=== PATIENT | male | born 1995 | race Caucasian/White ===

== ENCOUNTER 2016-03-27 05:08 | Emergency (ER) | payer OTHER ==
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
[2016-03-27 06:12] LABS: BASOPHIL 0.2 % (0-2.0); EOSINOPHIL 0.1 % (0-4.5); MCH 31.1 pg (25.7-33.7); MCHC 33.7 g/dl (32.0-35.9); MEAN CELL VOLUME 92.4 fl (80-96); MEAN PLT VOLUME 8.9 fl (7.5-11.1); PLATELET COUNT 277 K/MM3 (134-434); RDW 12.8 % (11.9-15.9); WHITE BLOOD COUNT 11.6 K/mm3 (4.0-10.0)
[2016-03-27 06:13] LABS: URINE APPEARANCE CLEAR; URINE BILIRUBIN NEGATIVE (NEGATIVE); URINE BLOOD NEGATIVE (NEGATIVE); URINE COLOR LTYELLOW; URINE GLUCOSE (UA) NEGATIVE (NEGATIVE); URINE KETONE NEGATIVE (NEGATIVE); URINE LEUK ESTERASE NEGATIVE (NEGATIVE); URINE NITRITE NEGATIVE (NEGATIVE); URINE PROTEIN NEGATIVE (NEGATIVE); URINE UROBILINOGEN NEGATIVE E.U./dl (0.2-1.0)
[2016-03-27 06:42] LABS: ALBUMIN 5.3 g/dl (3.4-5.0); ALK PHOS 115 U/L (45-117); ANION GAP 12 (8-16); BILIRUBIN,TOTAL 0.6 mg/dL (0.2-1.0); CALCIUM 10.6 mg/dL (8.5-10.1); CO2 26 mmol/L (21-32); GLUCOSE,RANDOM 114 mg/dL (74-106); SGOT/AST 21 U/L (15-37); SGPT/ALT 26 U/L (12-78); TOT PROT 9.3 g/dl (6.4-8.2)
[2016-03-27 06:45] VITALS: BP 146/88; PULSE 73; TEMP 98.3; BMI 23.8
[2016-03-27 15:03] LABS: URINE MARIJUANA THC POSITIVE ng/ml (CUTOFF=50)
== END 2016-03-27 06:59 | disposition home or self-care (01) ==
LOC: JER 05:08
DX: R42 Dizziness and giddiness (principal); T50.905A Adverse effect of unspecified drugs, medicaments and biological substances, initial encounter; Y92.018 Other place in single-family (private) house as the place of occurrence of the external cause; F90.9 Attention-deficit hyperactivity disorder, unspecified type; F17.210 Nicotine dependence, cigarettes, uncomplicated
CPT/HCPCS: 36415; 80053; 80307; 81003; 83930; 85025; 99283-25

== ENCOUNTER 2016-08-11 23:26 | Emergency (ER) | payer SELFPAY ==
[2016-08-11 23:36] VITALS: BP 133/90; PULSE 90; TEMP 98; BMI 25.0
--- NOTE | 2016-08-11 23:49 | PDOC ---
History of Present Illness - General Chief Complaint: Headache Stated Complaint: HEADACHE Time Seen by Provider: 08/11/16 23:35 History Source: Patient Exam Limitations: No Limitations - History of Present Illness Initial Comments: 08/11/16 23:47 This is a 20-year-old male who comes in complaining of headache 1 week. Patient said he has taken Tylenol and Advil without relief. Patient said headache is been constant but kind of gets worse from time to time. Patient describes the headache as throbbing and bitemporal. Patient denies any nausea, photophobia, neurological complaints. Patient denies any neck pain or stiffness. Patient denies any fevers or chills. Patient said he has been able to go to work with the headache but is worse tonight so he came in for evaluation. Patient went to an urgent care center and they told him he needed to come to the ER for a CAT scan. PAST MEDICAL HISTORY: no significant history PAST SURGICAL HISTORY: no significant history FAMILY HISTORY: no pertinant history SOCIAL HISTORY: Pt lives with family and is employed. MEDICATIONS: reviewed ALLERGIES: As per nursing notes Review of Systems General: No fevers or chills, no weakness, no weight loss HEENT: No change in vision. No sore throat,. No ear pain CardioVascular: No chest pain or shortness of breath Respiratory:No cough, or wheezing. Gastrointestinal: no nausea, vomitting, diarrhea or constipation, No rectal bleeding Genitourinary: No dysuria, hematuria, or frequency Musculoskeletal: No joint or muscle pain or swelling Neurologic: + headache, no vertigo, dizziness or loss of consciousness Psychiatric: nor depression Skin: No rashes or easy bruising Endocrine: no increased thirst or abnormal weight change Allergic: no skin or latex allergy All other systems reviewed and normal Exam: General: Well-nourished well-developed individual, no acute distress HEENT: Throat: Normal, tonsils normal, no erythema or exudate Neck: Supple, no meningeal signs, no lymphadenopathy Eyes::Pupils equal reactive and round, extraocular motion intact Extremities: Warm, dry, no cyanosis, clubbing, or edema Skin: No rashes Neuro: Alert and oriented x3, nonfocal exam, grossly intact, normal gait Psych: Normal mood and affect 08/12/16 00:[address] Referring Physician: Rodolfo Douglas Patient Name: Edwardo Elkins This is a preliminary report by imaging supervisor computer operations Exam: Noncontrast CT head Images: 69 Clinical indication: Temporal headache. Findings: Multiple axial images were obtained of the brain without contrast. There is no mass-effect, midline shift or hemorrhage. There is no intra-axial or extra-axial fluid collection. The visualized portions of the paranasal sinuses are clear. The middle ear cavities and mastoids are clear. No calvarial fracture seen. Impression: No mass effect or intracranial hemorrhage. No acute abnormality identified. THIS DOCUMENT HAS BEEN ELECTRONICALLY SIGNED Torin Galarza M.D. 08/12/2016 00:47 MYLES Masters Please call Imaging Building Materials Sales Attendant [phone]) with questions. Assessment and plan: This is a 20-year-old male who comes in complaining of bitemporal headache. Patient said he's had headach constant 1 week but no other associated symptoms. Patient said headache was worse tonight so he came in for evaluation. Patient had a head CT that was negative Patient given Toradol with improvement of the symptoms and discharged home will follow-up with his primary care doctor 08/12/16 00:55 Past History - Past Medical History Allergies/Adverse Reactions: Allergies Allergy/AdvReac Type Severity Reaction Status Date / Time fructose Allergy Severe Swelling Verified 03/27/16 05:24 wheat Allergy Severe Vomiting Verified 03/27/16 05:24 flour Allergy Severe Vomiting Uncoded 03/27/16 05:24 Home Medications: Ambulatory Orders Buspirone HCl [Buspar -] 15 mg PO BID 08/11/16 Quetiapine Fumarate [Seroquel -] 200 mg PO HS 08/11/16 Anemia: No Asthma: No Cancer: No Cardiac Disorders: No CVA: No COPD: No CHF: No Dementia: No Diabetes: No GI Disorders: Yes (CELIAC DISEASE) Disorders: No HTN: No Hypercholesterolemia: No Kidney Stones: No Liver Disease: No Psychiatric Problems: Yes (ADHD/ANXIETY/INSOMNIA) Suicide Attempt (Hx): No Seizures: Yes (R/T BENZO WITHDRAWAL) Thyroid Disease: No - Surgical History Abdominal Surgery: No Appendectomy: No Cardiac Surgery: No Cholecystectomy: No Lung Surgery: No Neurologic Surgery: No Orthopedic Surgery: No - Reproductive History Testicular Surgery: No - Immunization History Immunization Up to Date: Yes - Psycho/Social/Smoking Cessation Hx Anxiety: No Suicidal Ideation: No Smoking Status: No Smoking History: Current every day smoker Have you smoked in the past 12 months: Yes Number of Cigarettes Smoked Daily: 20 Cigars Per Day: 0 Information on smoking cessation initiated: Yes 'Breaking Loose' booklet given: 08/11/16 Hx Alcohol Use: Yes (vodka) Drug/Substance Use Hx: Yes Substance Use Type: Alcohol, Marijuana, Tranquilizers Hx Substance Use Treatment: Yes *Physical Exam - Vital Signs Last Vital Signs Temp Pulse Resp BP Pulse Ox 98 F 90 16 133/90 97 08/11/16 23:34 08/11/16 23:34 08/11/16 23:34 08/11/16 23:34 08/11/16 23:34 *DC/Admit/Observation/Transfer Diagnosis at time of Disposition: Headache Qualifiers: Headache type: tension-type Headache chronicity pattern: unspecified pattern Intractability: not intractable Qualified Code(s): G44.209 - Tension-type headache, unspecified, not intractable - Discharge Dispostion Condition at time of disposition: Stable Admit: No - Referrals Referrals: Donna Nagy MD [Primary Care Provider] - - Patient Instructions Additional Instructions: For the pain you can take Tylenol or ibuprofen or Aleve. Return to the emergency department immediately with ANY new, persistent or worsening symptoms. Continue any medications as previously prescribed by your physician. You should follow up with your primary doctor as soon as possible regarding today's emergency department visit. . Please make sure your doctor reviews the results of your emergency evaluation. Thank you for coming to the Emergency Department today for your care. It was a pleasure to see you today. Please note that your evaluation is INCOMPLETE until you follow-up with your doctor.
[2016-08-12] MEDS ORDERED: KETOROLAC TROMETHAMINE 60 MG/2 ML VIAL IM ONE (00:49)
[2016-08-12] MEDS ORDERED: KETOROLAC TROMETHAMINE 60 MG/2 ML VIAL ONE (00:54)
== END 2016-08-12 01:00 | disposition home or self-care (01) ==
LOC: FER 23:26
PROC: 3E0233Z Introduction of Anti-inflammatory into Muscle, Percutaneous Approach (ICD-10-PCS; principal; 2016-08-11)
DX: G44.209 Tension-type headache, unspecified, not intractable (principal); K90.0 Celiac disease; F90.9 Attention-deficit hyperactivity disorder, unspecified type; F41.9 Anxiety disorder, unspecified; F17.210 Nicotine dependence, cigarettes, uncomplicated
CPT/HCPCS: 70450-TC; 99281-25

== ENCOUNTER 2017-01-03 16:10 | Inpatient (IN) | payer OTHER ==
[2017-01-03 21:36] VITALS: BMI 29.6
--- NOTE | 2017-01-03 22:09 | HP ---
[facility] Rehab Assess/Revision - Admission History Admitted to Rehab from: [facility] [place] Date of Admission to Rehab: - Vital signs Vital Signs: Vital Signs Period Temp Pulse Resp BP Sys/Zheng Pulse Ox Last 24 Hr 97.8 F 90 18 123/71 - Findings Detox History & Physical reviewed: Yes Concur with findings: Yes Comments/Additional Findings: completed detox 01/02/17 return 01/03/17 for inpatient rehab Inpatient Rehab Admission - Initial Determination Are CD services needed?: Yes Free of communicable disease: Yes Not in need of hospitalization: Yes - Rehab Admission Criteria Previous failed treatment: Yes Poor recovery environment: Yes Comorbidities: Yes Lacks judgement: No Patient is meeting Inpatient Rehab admission criteria:: Yes
[2017-01-03] MEDS ORDERED: MENTHOL/PHENOL 1 EACH UD MM PRN (22:12)
[2017-01-03] MEDS ORDERED: MAGNESIUM HYDROX 2400MG/30ML ORAL SUSPENSION 30 ML CUP PO PRN (22:12)
[2017-01-03] MEDS ORDERED: ACETAMINOPHEN 325 MG TABLET (FP) PO PRN (22:12)
[2017-01-03] MEDS ORDERED: IBUPROFEN 400 MG TABLET (FP) PO PRN (22:12)
[2017-01-03] MEDS ORDERED: P-EPHED 60MG/TRIPROLIDI 2.5MG TABLET PO PRN (22:12)
[2017-01-03] MEDS ORDERED: guaiFENesin/D-METHORPHAN HB 10 ML UNIT-DOSE CUPS PO PRN (22:12)
[2017-01-03] MEDS ORDERED: MAGNESIUM CITRATE 300 ML BOTTLE PO PRN (22:12)
[2017-01-03] MEDS ORDERED: LOPERAMIDE HCL 2 MG CAPSULE PO PRN (22:12)
[2017-01-04] MEDS ORDERED: METHADONE HCL 40 MG DISPERSABLE TABLET PO SCH (07:30)
[2017-01-04] MEDS ORDERED: METHADONE HCL 10 MG TABLET ONE (08:26)
[2017-01-04] MEDS ORDERED: METHADONE HCL 40 MG DISPERSABLE TABLET ONE (08:27)
[2017-01-04] MEDS: PRENATAL VITAMINS W/ FOLIC ACID TABLET (FP) PO SCH (09:34)
[2017-01-04] MEDS: METHADONE 80 MG, METHADONE 10 MG PO SCH (09:34)
[2017-01-04] MEDS: NICOTINE 21 MG/24 HOURS TOPICAL PATCH TD SCH (09:35)
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
[2017-01-04] MEDS: QUEtiapine FUMARATE 50 MG TABLET PO SCH ×2 (15:19→21:20)
[2017-01-04] MEDS: SUVOREXANT 10 MG TABLET PO SCH (21:20)
[2017-01-04] MEDS: THIAMINE HCL 100 MG TABLET (FP) PO SCH (21:20)
[2017-01-04] MEDS: GABAPENTIN 100 MG CAPSULE (FP) PO SCH (21:20)
[2017-01-05] MEDS ORDERED: METHADONE HCL 10 MG TABLET ONE (03:20)
[2017-01-05] MEDS ORDERED: METHADONE HCL 40 MG DISPERSABLE TABLET ONE (03:21)
[2017-01-05] MEDS: GABAPENTIN 100 MG CAPSULE (FP) PO SCH ×3 (06:04→21:26)
[2017-01-05] MEDS: METHADONE 80 MG, METHADONE 10 MG PO SCH (06:04)
[2017-01-05] MEDS: NICOTINE 21 MG/24 HOURS TOPICAL PATCH TD SCH (10:00)
[2017-01-05] MEDS: QUEtiapine FUMARATE 50 MG TABLET PO SCH ×2 (10:01→21:25)
[2017-01-05] MEDS: PRENATAL VITAMINS W/ FOLIC ACID TABLET (FP) PO SCH (10:01)
[2017-01-05] MEDS: hydrOXYzine PAMOATE 50 MG CAPSULE (FP) PO PRN (10:02)
[2017-01-05] MEDS: MAG HYDROX/AL HYDROX/SIMETH 30 ML UNIT-DOSE CUP PO PRN (11:26)
[2017-01-05] MEDS: SUVOREXANT 10 MG TABLET PO SCH (21:25)
[2017-01-05] MEDS: THIAMINE HCL 100 MG TABLET (FP) PO SCH (21:26)
[2017-01-06] MEDS ORDERED: METHADONE HCL 10 MG TABLET ONE (03:10)
[2017-01-06] MEDS ORDERED: METHADONE HCL 40 MG DISPERSABLE TABLET ONE (03:11)
[2017-01-06] MEDS: MAG HYDROX/AL HYDROX/SIMETH 30 ML UNIT-DOSE CUP PO PRN ×2 (03:40→19:53)
[2017-01-06] MEDS: METHADONE 80 MG, METHADONE 10 MG PO SCH (06:36)
[2017-01-06] MEDS: GABAPENTIN 100 MG CAPSULE (FP) PO SCH ×3 (06:36→21:14)
[2017-01-06] MEDS: QUEtiapine FUMARATE 50 MG TABLET PO SCH ×2 (09:45→21:14)
[2017-01-06] MEDS: NICOTINE 21 MG/24 HOURS TOPICAL PATCH TD SCH (09:45)
[2017-01-06] MEDS: PRENATAL VITAMINS W/ FOLIC ACID TABLET (FP) PO SCH (09:45)
[2017-01-06] MEDS: THIAMINE HCL 100 MG TABLET (FP) PO SCH (21:14)
[2017-01-06] MEDS: SUVOREXANT 10 MG TABLET PO SCH (21:14)
[2017-01-07] MEDS ORDERED: METHADONE HCL 40 MG DISPERSABLE TABLET ONE (03:06)
[2017-01-07] MEDS ORDERED: METHADONE HCL 10 MG TABLET ONE (03:06)
[2017-01-07] MEDS: GABAPENTIN 100 MG CAPSULE (FP) PO SCH ×3 (06:41→21:18)
[2017-01-07] MEDS: METHADONE 80 MG, METHADONE 10 MG PO SCH (06:41)
[2017-01-07] MEDS: NICOTINE 21 MG/24 HOURS TOPICAL PATCH TD SCH (09:50)
[2017-01-07] MEDS: QUEtiapine FUMARATE 50 MG TABLET PO SCH ×2 (09:50→21:18)
[2017-01-07] MEDS: PRENATAL VITAMINS W/ FOLIC ACID TABLET (FP) PO SCH (09:50)
[2017-01-07] MEDS: NICOTINE POLACRILEX 4 MG GUM BUC PRN (09:51)
[2017-01-07] MEDS: MAG HYDROX/AL HYDROX/SIMETH 30 ML UNIT-DOSE CUP PO PRN (14:13)
[2017-01-07] MEDS: THIAMINE HCL 100 MG TABLET (FP) PO SCH (21:18)
[2017-01-07] MEDS: SUVOREXANT 10 MG TABLET PO SCH (21:18)
[2017-01-08] MEDS ORDERED: METHADONE HCL 40 MG DISPERSABLE TABLET ONE (03:02)
[2017-01-08] MEDS ORDERED: METHADONE HCL 10 MG TABLET ONE (03:02)
[2017-01-08] MEDS: METHADONE 80 MG, METHADONE 10 MG PO SCH (06:31)
[2017-01-08] MEDS: GABAPENTIN 100 MG CAPSULE (FP) PO SCH ×3 (06:31→21:21)
[2017-01-08] MEDS: NICOTINE 21 MG/24 HOURS TOPICAL PATCH TD SCH (09:34)
[2017-01-08] MEDS: QUEtiapine FUMARATE 50 MG TABLET PO SCH ×2 (09:35→21:21)
[2017-01-08] MEDS: PRENATAL VITAMINS W/ FOLIC ACID TABLET (FP) PO SCH (09:35)
[2017-01-08] MEDS: PANTOPRAZOLE 40 MG TABLET (FP) PO SCH (12:04)
[2017-01-08] MEDS: THIAMINE HCL 100 MG TABLET (FP) PO SCH (21:21)
[2017-01-08] MEDS: SUVOREXANT 10 MG TABLET PO SCH (21:22)
[2017-01-09] MEDS ORDERED: METHADONE HCL 10 MG TABLET ONE (03:09)
[2017-01-09] MEDS ORDERED: METHADONE HCL 40 MG DISPERSABLE TABLET ONE (03:09)
[2017-01-09] MEDS: GABAPENTIN 100 MG CAPSULE (FP) PO SCH ×3 (06:18→21:03)
[2017-01-09] MEDS: METHADONE 80 MG, METHADONE 10 MG PO SCH (06:18)
[2017-01-09] MEDS: QUEtiapine FUMARATE 50 MG TABLET PO SCH ×2 (09:39→21:03)
[2017-01-09] MEDS: PANTOPRAZOLE 40 MG TABLET (FP) PO SCH (09:39)
[2017-01-09] MEDS: PRENATAL VITAMINS W/ FOLIC ACID TABLET (FP) PO SCH (09:39)
[2017-01-09] MEDS: NICOTINE 21 MG/24 HOURS TOPICAL PATCH TD SCH (09:39)
--- NOTE | 2017-01-09 14:55 | DS ---
[facility] Detox Discharge Summary Admission Date: 01/03/17 - Physical Exam Results Vital Signs: Vital Signs Temperature 98.1 F 01/09/17 06:37 Pulse Rate 86 01/09/17 06:37 Respiratory Rate 18 01/09/17 06:37 Blood Pressure 113/62 01/09/17 06:37 O2 Sat by Pulse Oximetry (%) - Medication Discharge Medications: Ambulatory Orders Quetiapine Fumarate [Seroquel -] 200 mg PO HS 08/11/16 Methadone [Dolophine -] 90 mg PO DAILY@0600 tablet MDD 90 01/09/17
[2017-01-09] MEDS: SUVOREXANT 10 MG TABLET PO SCH (21:03)
[2017-01-09] MEDS: THIAMINE HCL 100 MG TABLET (FP) PO SCH (21:03)
[2017-01-09] MEDS: NICOTINE POLACRILEX 4 MG GUM BUC PRN (21:04)
[2017-01-10] MEDS ORDERED: METHADONE HCL 10 MG TABLET ONE (03:05)
[2017-01-10] MEDS ORDERED: METHADONE HCL 40 MG DISPERSABLE TABLET ONE (03:06)
[2017-01-10] MEDS: GABAPENTIN 100 MG CAPSULE (FP) PO SCH ×3 (06:21→21:07)
[2017-01-10] MEDS: METHADONE 80 MG, METHADONE 10 MG PO SCH (06:21)
[2017-01-10] MEDS: PRENATAL VITAMINS W/ FOLIC ACID TABLET (FP) PO SCH (09:45)
[2017-01-10] MEDS: PANTOPRAZOLE 40 MG TABLET (FP) PO SCH (09:45)
[2017-01-10] MEDS: QUEtiapine FUMARATE 50 MG TABLET PO SCH (09:45)
[2017-01-10] MEDS: NICOTINE 21 MG/24 HOURS TOPICAL PATCH TD SCH (09:46)
--- NOTE | 2017-01-10 12:07 | PN ---
Psychiatric Progress Note Vital Signs: Vital Signs Period Temp Pulse Resp BP Sys/Zheng Pulse Ox Last 24 Hr 97.5 F 77 16-18 121/88 Date of Session: 01/10/17 Chief Complaint:: progress update HPI: Patient is addressing opioid , benzo, nicotine dependence comorbid PTSD and substance induced mood disorder. Current Medications: Active Medications Generic Name Dose Route Start Last Admin Trade Name Freq PRN Reason Stop Dose Admin Acetaminophen 650 mg 01/03/17 22:12 Tylenol - PO Q4H PRN FEVER OR PAIN Al Hydroxide/Mg Hydroxide 30 ml 01/03/17 22:12 01/07/17 14:13 Mylanta Oral Suspension - PO 30 ml Q6H PRN Administration DYSPEPSIA Eucalyptus/Menthol/Phenol/Sorbitol 1 each 01/03/17 22:12 Cepastat Lozenge - MM Q4H PRN SORE THROAT Gabapentin 100 mg 01/04/17 22:00 01/10/17 06:21 Neurontin - PO 100 mg TID KALEE Administration Guaifenesin 10 ml 01/03/17 22:12 Robitussin Dm - PO Q6H PRN COUGH Hydroxyzine Pamoate 50 mg 01/05/17 02:04 01/05/17 10:02 Vistaril - PO 50 mg Q6H PRN Administration FOR ITCHING Ibuprofen 400 mg 01/03/17 22:12 Motrin - PO Q6H PRN PAIN Loperamide HCl 4 mg 01/03/17 22:12 Imodium - PO Q6H PRN DIARRHEA Magnesium Citrate 300 ml 01/03/17 22:12 Citroma - PO Q48H PRN CONSTIPATION Magnesium Hydroxide 30 ml 01/03/17 22:12 Milk Of Magnesia - PO DAILY PRN CONSTIPATION Methadone HCl 80 mg/ Methadone 90 mg 01/04/17 07:30 01/10/17 06:21 HCl 10 mg PO 90 mg DAILY@0600 KALEE Administration Nicotine 21 mg 01/04/17 10:00 01/10/17 09:46 Nicoderm Patch - TD 21 mg DAILY KALEE Administration Nicotine Polacrilex 4 mg 01/03/17 22:12 01/09/17 21:04 Nicorette Gum - BUC 4 mg Q2H PRN Administration NICOTINE REPLACEMENT RX Pantoprazole Sodium 40 mg 01/08/17 11:00 01/10/17 09:45 Protonix - PO 40 mg DAILY KALEE Administration Multivit/Folic Acid/Iron 1 tab 01/04/17 10:00 01/10/17 09:45 Vitamins (Sjr) - PO 1 tab DAILY KALEE Administration Pseudoephedrine/Triprolidine 1 combo 01/03/17 22:12 Actifed - PO TID PRN NASAL CONGESTION Quetiapine Fumarate 100 mg 01/11/17 10:00 Seroquel - PO DAILY KALEE Quetiapine Fumarate 200 mg 01/10/17 22:00 Seroquel - PO HS KALEE Thiamine HCl 100 mg 01/04/17 22:00 01/09/17 21:03 Vitamin B1 - PO 100 mg HS KALEE Administration Medication(s) Change(s): increase Seroquel 100 mg po am and 200 mg po hs Current Side Effect: No Lab tests ordered: No Lab tests reviewed: Yes Provider note:: Patient adjusted well to the unit, he was seen today, reports having mood swings, difficulty fall and maintain sleep, states was on Seroquel 200 mg po bid, reviewed current medications with the patient , medication well tolerated, discussed indications and properties each, will increase Seroquel 100 mg am and 200 mg hs, continue to monitor progress as needed. Total face to face time:: 25 Mental Status Exam - Mental Status Exam Alert and Oriented to: Time, Place, Person Cognitive Function: Good Patient Appearance: Well Groomed Mood: Sad, Irritable Affect: Appropriate, Mood Congruent Patient Behavior: Appropriate, Cooperative Speech Pattern: Clear, Appropriate Voice Loudness: Normal Thought Process: Intact, Goal Oriented Thought Disorder: Not Present Hallucinations: Denies Suicidal Ideation: Denies Homicidal Ideation: Denies Insight/Judgement: Fair Sleep: Poorly, Difficulty falling asleep Appetite: Fair Muscle strength/Tone: Normal Gait/Station: Normal Psychiatric Treatment Plan - Problem List (1) Post traumatic stress disorder (PTSD) Current Visit: Yes (2) Benzodiazepine dependence Current Visit: Yes (3) Nicotine dependence Current Visit: No Qualifiers: Nicotine product type: cigarettes Substance use status: uncomplicated Qualified Code(s): F17.210 - Nicotine dependence, cigarettes, uncomplicated (4) Opioid dependence on agonist therapy Current Visit: No (5) Substance induced mood disorder Current Visit: No (6) Methadone maintenance therapy patient Current Visit: No Comment: pending verication
[2017-01-10] MEDS: SUVOREXANT 10 MG TABLET PO SCH (21:07)
[2017-01-10] MEDS: QUEtiapine FUMARATE 200 MG TABLET PO SCH (21:07)
[2017-01-10] MEDS: THIAMINE HCL 100 MG TABLET (FP) PO SCH (21:07)
[2017-01-11] MEDS ORDERED: METHADONE HCL 10 MG TABLET ONE (03:08)
[2017-01-11] MEDS ORDERED: METHADONE HCL 40 MG DISPERSABLE TABLET ONE (03:08)
[2017-01-11] MEDS: GABAPENTIN 100 MG CAPSULE (FP) PO SCH ×3 (06:35→21:12)
[2017-01-11] MEDS: METHADONE 80 MG, METHADONE 10 MG PO SCH (06:36)
[2017-01-11] MEDS: PANTOPRAZOLE 40 MG TABLET (FP) PO SCH (09:54)
[2017-01-11] MEDS: QUEtiapine FUMARATE 100 MG TABLET (FP) PO SCH (09:54)
[2017-01-11] MEDS: PRENATAL VITAMINS W/ FOLIC ACID TABLET (FP) PO SCH (09:54)
[2017-01-11] MEDS: NICOTINE 21 MG/24 HOURS TOPICAL PATCH TD SCH (09:55)
[2017-01-11] MEDS: hydrOXYzine PAMOATE 50 MG CAPSULE (FP) PO PRN (09:55)
[2017-01-11] MEDS: THIAMINE HCL 100 MG TABLET (FP) PO SCH (21:12)
[2017-01-11] MEDS: QUEtiapine FUMARATE 200 MG TABLET PO SCH (21:12)
[2017-01-12] MEDS ORDERED: METHADONE HCL 10 MG TABLET ONE (03:07)
[2017-01-12] MEDS ORDERED: METHADONE HCL 40 MG DISPERSABLE TABLET ONE (03:08)
[2017-01-12] MEDS: METHADONE 80 MG, METHADONE 10 MG PO SCH (06:26)
[2017-01-12] MEDS: GABAPENTIN 100 MG CAPSULE (FP) PO SCH ×3 (06:26→21:01)
[2017-01-12] MEDS: PRENATAL VITAMINS W/ FOLIC ACID TABLET (FP) PO SCH (09:41)
[2017-01-12] MEDS: QUEtiapine FUMARATE 100 MG TABLET (FP) PO SCH (09:41)
[2017-01-12] MEDS: PANTOPRAZOLE 40 MG TABLET (FP) PO SCH (09:41)
[2017-01-12] MEDS: NICOTINE 21 MG/24 HOURS TOPICAL PATCH TD SCH (09:42)
[2017-01-12] MEDS: NICOTINE POLACRILEX 4 MG GUM BUC PRN ×2 (09:43→14:13)
[2017-01-12] MEDS: QUEtiapine FUMARATE 200 MG TABLET PO SCH (21:02)
[2017-01-12] MEDS: THIAMINE HCL 100 MG TABLET (FP) PO SCH (21:02)
[2017-01-13] MEDS ORDERED: METHADONE HCL 10 MG TABLET ONE (03:37)
[2017-01-13] MEDS ORDERED: METHADONE HCL 40 MG DISPERSABLE TABLET ONE (03:38)
[2017-01-13] MEDS: METHADONE 80 MG, METHADONE 10 MG PO SCH (06:28)
[2017-01-13] MEDS: GABAPENTIN 100 MG CAPSULE (FP) PO SCH ×3 (06:28→21:01)
[2017-01-13] MEDS: PRENATAL VITAMINS W/ FOLIC ACID TABLET (FP) PO SCH (09:45)
[2017-01-13] MEDS: QUEtiapine FUMARATE 100 MG TABLET (FP) PO SCH (09:45)
[2017-01-13] MEDS: NICOTINE 21 MG/24 HOURS TOPICAL PATCH TD SCH (09:45)
[2017-01-13] MEDS: PANTOPRAZOLE 40 MG TABLET (FP) PO SCH (09:45)
[2017-01-13] MEDS: NICOTINE POLACRILEX 4 MG GUM BUC PRN ×2 (14:13→21:09)
[2017-01-13] MEDS: QUEtiapine FUMARATE 200 MG TABLET PO SCH (21:01)
[2017-01-13] MEDS: THIAMINE HCL 100 MG TABLET (FP) PO SCH (21:01)
[2017-01-14] MEDS ORDERED: METHADONE HCL 10 MG TABLET ONE (03:35)
[2017-01-14] MEDS ORDERED: METHADONE HCL 40 MG DISPERSABLE TABLET ONE (03:35)
[2017-01-14] MEDS: METHADONE 80 MG, METHADONE 10 MG PO SCH (06:23)
[2017-01-14] MEDS: GABAPENTIN 100 MG CAPSULE (FP) PO SCH ×3 (06:24→21:02)
[2017-01-14] MEDS: NICOTINE 21 MG/24 HOURS TOPICAL PATCH TD SCH (09:44)
[2017-01-14] MEDS: QUEtiapine FUMARATE 100 MG TABLET (FP) PO SCH (09:44)
[2017-01-14] MEDS: PANTOPRAZOLE 40 MG TABLET (FP) PO SCH (09:44)
[2017-01-14] MEDS: PRENATAL VITAMINS W/ FOLIC ACID TABLET (FP) PO SCH (09:44)
[2017-01-14] MEDS: NICOTINE POLACRILEX 4 MG GUM BUC PRN ×2 (09:46→21:03)
[2017-01-14] MEDS: QUEtiapine FUMARATE 200 MG TABLET PO SCH (21:02)
[2017-01-14] MEDS: THIAMINE HCL 100 MG TABLET (FP) PO SCH (21:02)
[2017-01-15] MEDS ORDERED: METHADONE HCL 10 MG TABLET ONE (03:16)
[2017-01-15] MEDS ORDERED: METHADONE HCL 40 MG DISPERSABLE TABLET ONE (03:17)
[2017-01-15] MEDS: GABAPENTIN 100 MG CAPSULE (FP) PO SCH ×3 (06:37→21:16)
[2017-01-15] MEDS: METHADONE 80 MG, METHADONE 10 MG PO SCH (06:37)
[2017-01-15] MEDS: QUEtiapine FUMARATE 100 MG TABLET (FP) PO SCH (10:10)
[2017-01-15] MEDS: PANTOPRAZOLE 40 MG TABLET (FP) PO SCH (10:10)
[2017-01-15] MEDS: PRENATAL VITAMINS W/ FOLIC ACID TABLET (FP) PO SCH (10:10)
[2017-01-15] MEDS: NICOTINE 21 MG/24 HOURS TOPICAL PATCH TD SCH (10:10)
[2017-01-15] MEDS: NICOTINE POLACRILEX 4 MG GUM BUC PRN ×3 (10:12→21:16)
[2017-01-15] MEDS: QUEtiapine FUMARATE 200 MG TABLET PO SCH (21:15)
[2017-01-15] MEDS: THIAMINE HCL 100 MG TABLET (FP) PO SCH (21:16)
[2017-01-16] MEDS ORDERED: METHADONE HCL 40 MG DISPERSABLE TABLET ONE (03:09)
[2017-01-16] MEDS ORDERED: METHADONE HCL 10 MG TABLET ONE (03:09)
[2017-01-16] MEDS: METHADONE 80 MG, METHADONE 10 MG PO SCH (06:55)
[2017-01-16] MEDS: GABAPENTIN 100 MG CAPSULE (FP) PO SCH ×3 (06:55→21:07)
[2017-01-16] MEDS: PRENATAL VITAMINS W/ FOLIC ACID TABLET (FP) PO SCH (10:10)
[2017-01-16] MEDS: PANTOPRAZOLE 40 MG TABLET (FP) PO SCH (10:10)
[2017-01-16] MEDS: NICOTINE 21 MG/24 HOURS TOPICAL PATCH TD SCH (10:10)
[2017-01-16] MEDS: QUEtiapine FUMARATE 100 MG TABLET (FP) PO SCH (10:10)
[2017-01-16] MEDS: NICOTINE POLACRILEX 4 MG GUM BUC PRN ×3 (10:11→21:08)
[2017-01-16] MEDS: THIAMINE HCL 100 MG TABLET (FP) PO SCH (21:07)
[2017-01-16] MEDS: QUEtiapine FUMARATE 200 MG TABLET PO SCH (21:07)
[2017-01-17] MEDS ORDERED: METHADONE HCL 10 MG TABLET ONE (03:41)
[2017-01-17] MEDS ORDERED: METHADONE HCL 40 MG DISPERSABLE TABLET ONE (03:42)
[2017-01-17] MEDS: METHADONE 80 MG, METHADONE 10 MG PO SCH (06:33)
[2017-01-17] MEDS: GABAPENTIN 100 MG CAPSULE (FP) PO SCH ×3 (06:33→21:31)
[2017-01-17] MEDS: PANTOPRAZOLE 40 MG TABLET (FP) PO SCH (09:39)
[2017-01-17] MEDS: PRENATAL VITAMINS W/ FOLIC ACID TABLET (FP) PO SCH (09:39)
[2017-01-17] MEDS: QUEtiapine FUMARATE 100 MG TABLET (FP) PO SCH (09:39)
[2017-01-17] MEDS: NICOTINE 21 MG/24 HOURS TOPICAL PATCH TD SCH (09:40)
[2017-01-17] MEDS: NICOTINE POLACRILEX 4 MG GUM BUC PRN ×2 (09:42→15:12)
[2017-01-17] MEDS: QUEtiapine FUMARATE 200 MG TABLET PO SCH (21:31)
[2017-01-17] MEDS: THIAMINE HCL 100 MG TABLET (FP) PO SCH (21:31)
[2017-01-18] MEDS ORDERED: METHADONE HCL 40 MG DISPERSABLE TABLET ONE (06:06)
[2017-01-18] MEDS ORDERED: METHADONE HCL 10 MG TABLET ONE (06:06)
[2017-01-18] MEDS: METHADONE 80 MG, METHADONE 10 MG PO SCH (06:30)
[2017-01-18] MEDS: GABAPENTIN 100 MG CAPSULE (FP) PO SCH ×3 (06:31→21:10)
[2017-01-18] MEDS: PRENATAL VITAMINS W/ FOLIC ACID TABLET (FP) PO SCH (09:44)
[2017-01-18] MEDS: PANTOPRAZOLE 40 MG TABLET (FP) PO SCH (09:44)
[2017-01-18] MEDS: QUEtiapine FUMARATE 100 MG TABLET (FP) PO SCH (09:44)
[2017-01-18] MEDS: NICOTINE POLACRILEX 4 MG GUM BUC PRN (09:44)
[2017-01-18] MEDS: NICOTINE 21 MG/24 HOURS TOPICAL PATCH TD SCH (09:44)
[2017-01-18] MEDS: QUEtiapine FUMARATE 200 MG TABLET PO SCH (21:10)
[2017-01-18] MEDS: THIAMINE HCL 100 MG TABLET (FP) PO SCH (21:10)
[2017-01-19] MEDS ORDERED: METHADONE HCL 10 MG TABLET ONE (03:13)
[2017-01-19] MEDS ORDERED: METHADONE HCL 40 MG DISPERSABLE TABLET ONE (03:13)
[2017-01-19] MEDS: METHADONE 80 MG, METHADONE 10 MG PO SCH (06:23)
[2017-01-19] MEDS: GABAPENTIN 100 MG CAPSULE (FP) PO SCH ×3 (06:23→21:24)
[2017-01-19] MEDS: NICOTINE 21 MG/24 HOURS TOPICAL PATCH TD SCH (09:35)
[2017-01-19] MEDS: QUEtiapine FUMARATE 100 MG TABLET (FP) PO SCH (09:35)
[2017-01-19] MEDS: PANTOPRAZOLE 40 MG TABLET (FP) PO SCH (09:35)
[2017-01-19] MEDS: PRENATAL VITAMINS W/ FOLIC ACID TABLET (FP) PO SCH (09:35)
[2017-01-19] MEDS: NICOTINE POLACRILEX 4 MG GUM BUC PRN ×2 (09:36→21:24)
--- NOTE | 2017-01-19 15:04 | PN ---
[facility] Progress Note Note: PATIENT COMPLAINED OF CHEST PAIN,RELATED TO MOVEMENT EKG SINUS TACHYCARDIA NO ACUTE CHANGE ON EXAMINATION LYING COMFORTABLY IN BED NO DISTRESS HEART NORMAL HEART SOUNG,S2,S2 LUNG CLREAR,NO WHEEZING NO ABDOMINAL PAIN NO CALF TENDERNESS IMPRESSION CHEST PAIN MYALGIA TREATMENT VISTARIL 50 MGS PO NOW PRN FOR ANXIETY MOTRIN 400 MGS PO PRN FOR PAIN CLOSE MONITORING
[2017-01-19] MEDS: hydrOXYzine PAMOATE 50 MG CAPSULE (FP) PO PRN (15:25)
[2017-01-19] MEDS: QUEtiapine FUMARATE 200 MG TABLET PO SCH (21:24)
[2017-01-19] MEDS: THIAMINE HCL 100 MG TABLET (FP) PO SCH (21:24)
[2017-01-20] MEDS ORDERED: METHADONE HCL 10 MG TABLET ONE (06:12)
[2017-01-20] MEDS ORDERED: METHADONE HCL 40 MG DISPERSABLE TABLET ONE (06:12)
[2017-01-20] MEDS: METHADONE 80 MG, METHADONE 10 MG PO SCH (06:47)
[2017-01-20] MEDS: GABAPENTIN 100 MG CAPSULE (FP) PO SCH ×3 (06:48→21:15)
[2017-01-20] MEDS: PANTOPRAZOLE 40 MG TABLET (FP) PO SCH (09:58)
[2017-01-20] MEDS: QUEtiapine FUMARATE 100 MG TABLET (FP) PO SCH (09:58)
[2017-01-20] MEDS: PRENATAL VITAMINS W/ FOLIC ACID TABLET (FP) PO SCH (09:58)
[2017-01-20] MEDS: NICOTINE 21 MG/24 HOURS TOPICAL PATCH TD SCH (09:59)
[2017-01-20] MEDS: NICOTINE POLACRILEX 4 MG GUM BUC PRN ×2 (10:00→21:16)
[2017-01-20] MEDS: QUEtiapine FUMARATE 200 MG TABLET PO SCH (21:15)
[2017-01-20] MEDS: THIAMINE HCL 100 MG TABLET (FP) PO SCH (21:15)
[2017-01-21] MEDS ORDERED: METHADONE HCL 40 MG DISPERSABLE TABLET ONE (03:09)
[2017-01-21] MEDS ORDERED: METHADONE HCL 10 MG TABLET ONE (03:09)
[2017-01-21] MEDS: GABAPENTIN 100 MG CAPSULE (FP) PO SCH ×3 (06:41→21:19)
[2017-01-21] MEDS: METHADONE 80 MG, METHADONE 10 MG PO SCH (06:41)
[2017-01-21] MEDS: QUEtiapine FUMARATE 100 MG TABLET (FP) PO SCH (10:03)
[2017-01-21] MEDS: PANTOPRAZOLE 40 MG TABLET (FP) PO SCH (10:03)
[2017-01-21] MEDS: PRENATAL VITAMINS W/ FOLIC ACID TABLET (FP) PO SCH (10:03)
[2017-01-21] MEDS: NICOTINE 21 MG/24 HOURS TOPICAL PATCH TD SCH (10:03)
[2017-01-21] MEDS: NICOTINE POLACRILEX 4 MG GUM BUC PRN ×2 (14:25→21:19)
[2017-01-21] MEDS: QUEtiapine FUMARATE 200 MG TABLET PO SCH (21:19)
[2017-01-21] MEDS: THIAMINE HCL 100 MG TABLET (FP) PO SCH (21:19)
[2017-01-22] MEDS ORDERED: METHADONE HCL 40 MG DISPERSABLE TABLET ONE (03:42)
[2017-01-22] MEDS ORDERED: METHADONE HCL 10 MG TABLET ONE (03:42)
[2017-01-22] MEDS: METHADONE 80 MG, METHADONE 10 MG PO SCH (06:13)
[2017-01-22] MEDS: GABAPENTIN 100 MG CAPSULE (FP) PO SCH ×3 (06:13→21:11)
[2017-01-22] MEDS: PANTOPRAZOLE 40 MG TABLET (FP) PO SCH (09:56)
[2017-01-22] MEDS: QUEtiapine FUMARATE 100 MG TABLET (FP) PO SCH (09:56)
[2017-01-22] MEDS: PRENATAL VITAMINS W/ FOLIC ACID TABLET (FP) PO SCH (09:56)
[2017-01-22] MEDS: NICOTINE 21 MG/24 HOURS TOPICAL PATCH TD SCH (09:56)
[2017-01-22] MEDS: NICOTINE POLACRILEX 4 MG GUM BUC PRN ×2 (14:21→21:12)
[2017-01-22] MEDS: THIAMINE HCL 100 MG TABLET (FP) PO SCH (21:11)
[2017-01-22] MEDS: QUEtiapine FUMARATE 200 MG TABLET PO SCH (21:11)
[2017-01-23] MEDS: hydrOXYzine PAMOATE 50 MG CAPSULE (FP) PO PRN ×3 (00:13→21:22)
--- NOTE | 2017-01-23 01:05 | EKG ---
Test Reason : Blood Pressure : / mmHG Vent. Rate : 100 BPM Atrial Rate : 100 BPM P-R Int : 128 ms QRS Dur : 084 ms QT Int : 346 ms P-R-T Axes : 050 -18 042 degrees QTc Int : 446 ms NORMAL SINUS RHYTHM NORMAL ECG WHEN COMPARED WITH ECG OF 29-DEC-2016 16:26, VENT. RATE HAS INCREASED BY 38 BPM Confirmed by CHRISTINE ARGUETA MD ([id number]) on 01/23/2017 1:05:17 AM Referred By: Ute Noonan Confirmed By:CHRISTINE ARGUETA MD
[2017-01-23] MEDS ORDERED: METHADONE HCL 10 MG TABLET ONE (05:02)
[2017-01-23] MEDS ORDERED: METHADONE HCL 40 MG DISPERSABLE TABLET ONE (05:03)
[2017-01-23] MEDS: METHADONE 80 MG, METHADONE 10 MG PO SCH (06:15)
[2017-01-23] MEDS: GABAPENTIN 100 MG CAPSULE (FP) PO SCH ×3 (06:15→21:21)
[2017-01-23] MEDS: NICOTINE 21 MG/24 HOURS TOPICAL PATCH TD SCH (09:45)
[2017-01-23] MEDS: QUEtiapine FUMARATE 100 MG TABLET (FP) PO SCH (09:45)
[2017-01-23] MEDS: PRENATAL VITAMINS W/ FOLIC ACID TABLET (FP) PO SCH (09:45)
[2017-01-23] MEDS: PANTOPRAZOLE 40 MG TABLET (FP) PO SCH (09:45)
[2017-01-23] MEDS: NICOTINE POLACRILEX 4 MG GUM BUC PRN (13:50)
--- NOTE | 2017-01-23 15:48 | PN ---
Psychiatric Progress Note Vital Signs: Vital Signs Period Temp Pulse Resp BP Sys/Zheng Pulse Ox Last 24 Hr 98.5 F 81 16-16 111/49 Date of Session: 01/23/17 Chief Complaint:: "I am depressed" HPI: Patient is addressing opioid , benzo, nicotine dependence comorbid PTSD and substance induced mood disorder. Current Medications: Active Medications Generic Name Dose Route Start Last Admin Trade Name Freq PRN Reason Stop Dose Admin Acetaminophen 650 mg 01/03/17 22:12 01/11/17 09:54 Tylenol - PO 650 mg Q4H PRN Administration FEVER OR PAIN Al Hydroxide/Mg Hydroxide 30 ml 01/03/17 22:12 01/07/17 14:13 Mylanta Oral Suspension - PO 30 ml Q6H PRN Administration DYSPEPSIA Eucalyptus/Menthol/Phenol/Sorbitol 1 each 01/03/17 22:12 Cepastat Lozenge - MM Q4H PRN SORE THROAT Gabapentin 100 mg 01/04/17 22:00 01/23/17 13:48 Neurontin - PO 100 mg TID KALEE Administration Guaifenesin 10 ml 01/03/17 22:12 Robitussin Dm - PO Q6H PRN COUGH Hydroxyzine Pamoate 50 mg 01/19/17 15:05 01/23/17 13:49 Vistaril - PO 50 mg Q6H PRN Administration ANXIETY Ibuprofen 400 mg 01/03/17 22:12 01/19/17 14:22 Motrin - PO 400 mg Q6H PRN Administration PAIN Loperamide HCl 4 mg 01/03/17 22:12 Imodium - PO Q6H PRN DIARRHEA Magnesium Citrate 300 ml 01/03/17 22:12 Citroma - PO Q48H PRN CONSTIPATION Magnesium Hydroxide 30 ml 01/03/17 22:12 Milk Of Magnesia - PO DAILY PRN CONSTIPATION Methadone HCl 80 mg/ Methadone 90 mg 01/18/17 07:30 01/23/17 06:15 HCl 10 mg PO 01/24/17 07:29 90 mg DAILY@0600 KALEE Administration Mirtazapine 15 mg 01/23/17 15:45 Remeron - PO HS KALEE Nicotine 21 mg 01/04/17 10:00 01/23/17 09:45 Nicoderm Patch - TD 21 mg DAILY KALEE Administration Nicotine Polacrilex 4 mg 01/03/17 22:12 11/28/17 13:50 Nicorette Gum - BUC 4 mg Q2H PRN Administration NICOTINE REPLACEMENT RX Pantoprazole Sodium 40 mg 01/08/17 11:00 01/23/17 09:45 Protonix - PO 40 mg DAILY KALEE Administration Multivit/Folic Acid/Iron 1 tab 01/04/17 10:00 01/23/17 09:45 Vitamins (Sjr) - PO 1 tab DAILY KALEE Administration Pseudoephedrine/Triprolidine 1 combo 01/03/17 22:12 Actifed - PO TID PRN NASAL CONGESTION Quetiapine Fumarate 100 mg 01/11/17 10:00 01/23/17 09:45 Seroquel - PO 100 mg DAILY KALEE Administration Quetiapine Fumarate 200 mg 01/10/17 22:00 01/22/17 21:11 Seroquel - PO 200 mg HS KALEE Administration Sertraline HCl 50 mg 01/24/17 10:00 Zoloft - PO DAILY KALEE Thiamine HCl 100 mg 01/04/17 22:00 01/22/17 21:11 Vitamin B1 - PO 100 mg HS KALEE Administration Medication(s) Change(s): add Remeron 15 mg po hs and Zoloft 50 mg po daily. Current Side Effect: No Lab tests ordered: No Lab tests reviewed: Yes Provider note:: PAtient reports has been feeling very depressed, axnsious and unable to sleep at nights, reports a past good response to Zoloft and Remeron.Indications and properties of medications discussed will add remeron 15 mg p hs amd Zoloft 50 mg po daily, continue to monitor progress. Total face to face time:: 15 Mental Status Exam - Mental Status Exam Alert and Oriented to: Place, Person Cognitive Function: Grossly Intact Patient Appearance: Well Groomed Mood: Depressed, Sad, Anxious Affect: Mood Congruent Patient Behavior: Appropriate, Cooperative Speech Pattern: Clear, Appropriate Voice Loudness: Normal Thought Process: Intact, Goal Oriented Thought Disorder: Not Present Hallucinations: Denies Suicidal Ideation: Denies Homicidal Ideation: Denies Insight/Judgement: Fair Sleep: Difficulty falling asleep Appetite: Fair Muscle strength/Tone: Normal Gait/Station: Normal Psychiatric Treatment Plan - Problem List (1) Post traumatic stress disorder (PTSD) Current Visit: Yes (2) Benzodiazepine dependence Current Visit: Yes (3) Nicotine dependence Current Visit: No Qualifiers: Nicotine product type: cigarettes Substance use status: uncomplicated Qualified Code(s): F17.210 - Nicotine dependence, cigarettes, uncomplicated (4) Opioid dependence on agonist therapy Current Visit: No (5) Substance induced mood disorder Current Visit: No (6) Methadone maintenance therapy patient Current Visit: No Comment: pending verication
[2017-01-23] MEDS: QUEtiapine FUMARATE 200 MG TABLET PO SCH (21:21)
[2017-01-23] MEDS: THIAMINE HCL 100 MG TABLET (FP) PO SCH (21:21)
[2017-01-23] MEDS ORDERED: MIRTAZAPINE 15 MG TABLET (FP) PO SCH (22:00)
[2017-01-24] MEDS ORDERED: METHADONE HCL 10 MG TABLET ONE (03:06)
[2017-01-24] MEDS ORDERED: METHADONE HCL 40 MG DISPERSABLE TABLET ONE (03:06)
[2017-01-24] MEDS: METHADONE 80 MG, METHADONE 10 MG PO SCH (06:19)
[2017-01-24] MEDS: GABAPENTIN 100 MG CAPSULE (FP) PO SCH ×3 (06:19→21:12)
--- NOTE | 2017-01-24 09:35 | PN ---
[facility] Progress Note Note: d/c remeron, patient is sedated
[2017-01-24] MEDS: PANTOPRAZOLE 40 MG TABLET (FP) PO SCH (09:47)
[2017-01-24] MEDS: PRENATAL VITAMINS W/ FOLIC ACID TABLET (FP) PO SCH (09:47)
[2017-01-24] MEDS: QUEtiapine FUMARATE 100 MG TABLET (FP) PO SCH (09:47)
[2017-01-24] MEDS: NICOTINE 21 MG/24 HOURS TOPICAL PATCH TD SCH (09:48)
[2017-01-24] MEDS ORDERED: SERTRALINE HCL 50 MG TABLET (FP) PO SCH (10:00)
[2017-01-24] MEDS: NICOTINE POLACRILEX 4 MG GUM BUC PRN (14:24)
[2017-01-24] MEDS: QUEtiapine FUMARATE 200 MG TABLET PO SCH (21:11)
[2017-01-24] MEDS: THIAMINE HCL 100 MG TABLET (FP) PO SCH (21:12)
[2017-01-24] MEDS: hydrOXYzine PAMOATE 50 MG CAPSULE (FP) PO PRN (21:13)
[2017-01-25] MEDS ORDERED: METHADONE HCL 10 MG TABLET PO SCH ×3 (06:00)
[2017-01-25] MEDS ORDERED: METHADONE HCL 10 MG TABLET ONE (06:11)
[2017-01-25] MEDS ORDERED: METHADONE HCL 40 MG DISPERSABLE TABLET ONE (06:11)
[2017-01-25] MEDS ORDERED: METHADONE 80 MG, METHADONE 10 MG PO SCH (06:15)
[2017-01-25] MEDS: GABAPENTIN 100 MG CAPSULE (FP) PO SCH (06:30)
[2017-01-25 06:45] VITALS: BP 106/61; PULSE 79; TEMP 98.4
[2017-01-25] MEDS: QUEtiapine FUMARATE 100 MG TABLET (FP) PO SCH (09:40)
[2017-01-25] MEDS: PRENATAL VITAMINS W/ FOLIC ACID TABLET (FP) PO SCH (09:40)
[2017-01-25] MEDS: PANTOPRAZOLE 40 MG TABLET (FP) PO SCH (09:40)
[2017-01-25] MEDS: NICOTINE 21 MG/24 HOURS TOPICAL PATCH TD SCH (09:41)
--- NOTE | 2017-01-25 12:44 | PN ---
Psychiatric Progress Note Vital Signs: Vital Signs Period Temp Pulse Resp BP Sys/Zheng Pulse Ox Last 24 Hr 98.4 F 79 18-18 106/61 Date of Session: 01/25/17 Chief Complaint:: discharge visit HPI: Patient addressing opioid , benzo, nicotine dependence comorbid PTSD and substance induced mood disorder. ROS: WNL Current Side Effect: No Lab tests ordered: No Lab tests reviewed: Yes Provider note:: Patient has completed today his treatment, he will continueto address his issues at [facility] outpatient treatment program, he understands the negative impact his addiction on his major life areas and motivated to continue maintain abstinence.He was provided with scripts for Gabapentin 100 mg po tid, Seroquel 200 mg po hs, patient is stable for discharge today. Total face to face time:: 15 Mental Status Exam - Mental Status Exam Alert and Oriented to: Time, Place, Person Cognitive Function: Grossly Intact Patient Appearance: Well Groomed Mood: Hopeful Affect: Appropriate, Mood Congruent Patient Behavior: Appropriate, Cooperative Speech Pattern: Clear, Appropriate Voice Loudness: Normal Thought Process: Intact Thought Disorder: Not Present Hallucinations: Denies Suicidal Ideation: Denies Homicidal Ideation: Denies Insight/Judgement: Fair Sleep: Fair Appetite: Fair Muscle strength/Tone: Normal Gait/Station: Normal Psychiatric Treatment Plan - Problem List (3) Nicotine dependence Qualifiers: Nicotine product type: cigarettes Substance use status: uncomplicated Qualified Code(s): F17.210 - Nicotine dependence, cigarettes, uncomplicated (6) Methadone maintenance therapy patient Comment: pending verication
== END 2017-01-25 10:00 | disposition home or self-care (01) | DRG 772 ==
LOC: YASAS 16:10 → Y5N 22:37
PROVIDERS: ADMIT Psychiatry & Neurology Psychiatry; ATTEND Psychiatry & Neurology Psychiatry
PROC: HZ42ZZZ Group Counseling for Substance Abuse Treatment, Cognitive-Behavioral (ICD-10-PCS; principal; 2017-01-03)
DX: F13.20 Sedative, hypnotic or anxiolytic dependence, uncomplicated (principal); F11.20 Opioid dependence, uncomplicated; F17.210 Nicotine dependence, cigarettes, uncomplicated; F43.10 Post-traumatic stress disorder, unspecified; F19.24 Other psychoactive substance dependence with psychoactive substance-induced mood disorder; R00.0 Tachycardia, unspecified; R07.89 Other chest pain; M79.1 Myalgia; Z86.69 Personal history of other diseases of the nervous system and sense organs; Z91.018 Allergy to other foods
CPT/HCPCS: 93005; 93010

== ENCOUNTER 2017-01-31 14:22 | Emergency (ER) | payer OTHER ==
[2017-01-31 14:27] VITALS: BP 130/83; PULSE 73; TEMP 98.7; BMI 31.1
--- NOTE | 2017-01-31 14:53 | PDOC ---
History of Present Illness - General History Source: Patient - History of Present Illness Initial Comments: 01/31/17 15:14 The patient is a 21 year old male with a significant past medical history of polysubstance abuse, psychiatric problems, methadone treatment, and celiac disease who presents to the ED with nausea, vomiting, diarrhea, and epigastric pain beginning yesterday morning. He reports 4 episodes of clear fluid and undigested food emesis. He reports 2 episodes of nonbloody diarrhea the last episode was this morning. He reports left lower abdominal pain secondary to his epigastric pain. He denies missing any of his methadone treatments. He denies sick contact. He denies eating any suspicious food or any raw meats or seafood. He denies a cough. He denies any recent fevers, chills, headache or dizziness. He denies any recent chest pain or shortness of breath. He denies flank pain. He denies any recent dysuria, frequency, urgency or hematuria. Allergies: Fructose, Wheat, Haloperidol, Haloperidol lactate, and flour. Medications: Seroquel, Neurotin, Dolophine Past surgical history: None reported. Social History: Smoker(Pack a day). Denies EtOH use and recreational drug use. <Yadira Schmitt - Last Filed: 01/31/17 15:13> <Edwardo Nur - Last Filed: 01/31/17 15:18> - General Chief Complaint: Pain, Acute Stated Complaint: abd pain Time Seen by Provider: 01/31/17 14:31 Past History <Yadira Schmitt - Last Filed: 01/31/17 15:13> - Past Medical History Anemia: No Asthma: No Cancer: No Cardiac Disorders: No CVA: No COPD: No CHF: No Dementia: No Diabetes: No GI Disorders: Yes (celiac) Disorders: No HTN: No Hypercholesterolemia: No Kidney Stones: No Liver Disease: No Psychiatric Problems: Yes (ADHD/ANXIETY/INSOMNIA) Seizures: No Thyroid Disease: No - Surgical History Abdominal Surgery: No Appendectomy: No Cardiac Surgery: No Cholecystectomy: No Lung Surgery: No Neurologic Surgery: No Orthopedic Surgery: No - Reproductive History Testicular Surgery: No - Immunization History Immunization Up to Date: Yes - Suicide/Smoking/Psychosocial Hx Smoking Status: No Smoking History: Current every day smoker Have you smoked in the past 12 months: Yes Number of Cigarettes Smoked Daily: 20 Cigars Per Day: 0 Information on smoking cessation initiated: Yes 'Breaking Loose' booklet given: 01/31/17 Hx Alcohol Use: No Drug/Substance Use Hx: Yes Substance Use Type: Heroin, Tranquilizers Hx Substance Use Treatment: Yes ([facility]) <Edwardo Nur - Last Filed: 01/31/17 15:18> - Past Medical History Allergies/Adverse Reactions: Allergies Allergy/AdvReac Type Severity Reaction Status Date / Time fructose AdvReac Severe Vomiting Verified 01/31/17 14:22 wheat AdvReac Severe Vomiting Verified 01/31/17 14:22 haloperidol [From Haldol] AdvReac stiffness Verified 01/31/17 14:22 haloperidol lactate AdvReac stiffness Verified 01/31/17 14:22 [From Haldol] flour Allergy Severe Vomiting Uncoded 01/31/17 14:22 Home Medications: Ambulatory Orders Quetiapine Fumarate [Seroquel -] 200 mg PO HS 08/11/16 Gabapentin [Neurontin -] 100 mg PO TID #90 capsule 01/25/17 Hyoscyamine Sulfate [Levsin -] 0.125 mg PO Q8H PRN #12 tablet 01/31/17 Methadone [Dolophine -] 100 mg PO DAILY@0600 MDD 90 01/31/17 Ondansetron [Zofran Odt -] 4 - 8 mg SL TID PRN #12 od.tablet 01/31/17 Quetiapine Fumarate [Seroquel -] 100 mg PO DAILY 01/31/17 Abd/GI Specific PMHX - Complaint Specific PMHX Hepatitis: No Pancreatitis: No <Edwardo Nur - Last Filed: 01/31/17 15:18> Review of Systems - Review of Systems Able to Perform ROS?: Yes Comments:: 01/31/17 15:14 CONSTITUTIONAL: Absent: fever, no chills, no fatigue EYES: Absent: visual changes ENT: Absent: ear pain, no sore throat CARDIOVASCULAR: Absent: chest pain, no palpitations RESPIRATORY: Absent: cough, no SOB GI: +Epigastric pain. +Lower left quadrant abdominal pain. +Nausea. +Vomiting. + Diarrhea. Absent:no constipation GENITOURINARY: Absent: dysuria, no frequency, no hematuria MUSKULOSKELETAL: Absent: back pain, no arthralgia, no myalgia SKIN: Absent: rash NEURO: Absent: headache All Other Systems: Reviewed and Negative <Yadira Schmitt - Last Filed: 01/31/17 15:13> *Physical Exam - Vital Signs Last Vital Signs Temp Pulse Resp BP Pulse Ox 98.7 F 73 16 130/83 95 01/31/17 14:22 01/31/17 14:22 01/31/17 14:22 01/31/17 14:22 01/31/17 14:22 - Physical Exam Comments: 01/31/17 15:15 GENERAL: Well developed, well nourished. Awake and alert. No acute distress. HEENT: Normocephalic, atraumatic. PERRLA, EOMI. No conjunctival pallor. Sclera are non- icteric. Moist mucous membranes. Oropharynx is clear. NECK: Supple. Full ROM. No JVD. Carotid pulses 2+ and symmetric, without bruits. No thyromegaly. No lymphadenopathy. CARDIOVASCULAR: Regular rate and rhythm. No murmurs, rubs, or gallops. Distal pulses are 2+ and symmetric. PULMONARY: No evidence of respiratory distress. Lungs clear to auscultation bilaterally. No wheezing, rales or rhonchi. ABDOMINAL: +Slight upper and lower quadrant tenderness. +Minimal tenderness to palpation. No Fessenden sign. Soft. Non-distended. No rebound or guarding. No mass or organomegaly. Normoactive bowel sounds. MUSCULOSKELETAL Normal range of motion at all joints. No bony deformities or tenderness. No CVA tenderness. EXTREMITIES: No cyanosis. No clubbing. No edema. No calf tenderness. SKIN: Warm and dry. Normal capillary refill. No rashes. No jaundice. NEUROLOGICAL: Alert, awake, appropriate. Cranial nerves 2-12 intact. No deficits to light touch and temperature in face, upper extremities and lower extremities. No motor deficits in the in face, upper extremities and lower extremities. Normoreflexic in the upper and lower extremities. Normal speech. Toes are down- going bilaterally. Gait is normal without ataxia. PSYCHIATRIC: Cooperative. Good eye contact. Appropriate mood and affect. <Yadira Schmitt - Last Filed: 01/31/17 15:13> - Vital Signs Last Vital Signs Temp Pulse Resp BP Pulse Ox 98.7 F 73 16 130/83 95 01/31/17 14:22 01/31/17 14:22 01/31/17 14:22 01/31/17 14:22 01/31/17 14:22 <Edwardo Nur - Last Filed: 01/31/17 15:18> Medical Decision Making - Medical Decision Making 01/31/17 15:16 Patient does not appear to be ill. He is in no distress, cheerful and cooperative. Afebrile. Abdomen is nondistended with normal bowel sounds, soft without masses, significant tenderness or organomegaly. He is taking his methadone regularly, as well as his other medications. No suspicious ingestions , food or otherwise. Infrequent episodes of vomiting, 4 since yesterday morning , containing clear fluid or undigested food, and 2 episodes of diarrhea since yesterday, one this morning, watery, no blood or mucus. Bowel rest, symptomatic treatment, follow-up if more severe symptoms develop. No sign of appendicitis or other serious intra-abdominal disease. <Edwardo Nur - Last Filed: 01/31/17 15:18> *DC/Admit/Observation/Transfer - Attestations Scribe Attestion: 01/31/17 15:15 Documentation prepared by Yadira Schmitt, acting as anesthesiology medical doctor for Edwardo Montiel MD. <Yadira Schmitt - Last Filed: 01/31/17 15:13> - Discharge Dispostion Admit: No <Edwardo Nur - Last Filed: 01/31/17 15:18> Diagnosis at time of Disposition: Viral gastroenteritis - Discharge Dispostion Disposition: HOME Condition at time of disposition: Stable - Prescriptions Prescriptions: Hyoscyamine Sulfate [Levsin -] 0.125 mg PO Q8H PRN #12 tablet PRN Reason: abdominal cramps Ondansetron [Zofran Odt -] 4 - 8 mg SL TID PRN #12 od.tablet PRN Reason: Nausea And/Or Vomiting - Patient Instructions Printed Discharge Instructions: DI for Viral Gastroenteritis -- Adult Additional Instructions: Return to ER if there is fever, persistent vomiting and diarrhea with the inability to hold down liquids, or increased pain. Otherwise follow-up with primary physician in 24-48 hours.
== END 2017-01-31 14:57 | disposition home or self-care (01) ==
LOC: FER 14:22
DX: A08.4 Viral intestinal infection, unspecified (principal); F19.10 Other psychoactive substance abuse, uncomplicated; F99 Mental disorder, not otherwise specified; F17.210 Nicotine dependence, cigarettes, uncomplicated
CPT/HCPCS: 99282-25

== ENCOUNTER 2018-01-11 12:03 | Inpatient (IN) | payer OTHER ==
[2018-01-11 12:30] VITALS: BMI 29.3
--- NOTE | 2018-01-11 13:10 | HP ---
CIWA Score Nausea/Vomitin Muscle Tremors: 2 Anxiety: 2 Agitation: 2 Paroxysmal Sweats: 1-Minimal Palms Moist Orientation: 0-Oriented Tacttile Disturbances: 1-Very Mild Itch/Numbness Auditory Disturbances: 1-Very Mild Visual Disturbances: 0-None Headache: 2-Mild CIWA-Ar Total Score: 13 - Admission Criteria [facility]ASAS Guidelines: Admission for Medically Managed Detox: Requires at least one of the followin. CIWA greater than 12 2. Seizures within the past 24 hours 3. Delirium tremens within the past 24 hours 4. Hallucinations within the past 24 hours 5. Acute intervention needed for co occurring medical disorder 6. Acute intervention needed for co occurring psychiatric disorder 7. Severe withdrawal that cannot be handled at a lower level of care (continued vomiting, continued diarrhea, abnormal vital signs) requiring intravenous medication and/or fluids 8. Patient presents the following: CIWA greater than 12 Admission Criteria Met: Admission criteria met Admission ROS S - [facility] Chief Complaint: i need help to stop using xanax and heroin abused Allergies/Adverse Reactions: Allergies Allergy/AdvReac Type Severity Reaction Status Date / Time gluten Allergy Verified 01/11/18 12:58 No Known Drug Allergies Allergy Verified 01/11/18 13:31 fructose AdvReac Severe Vomiting Verified 01/31/17 14:22 wheat AdvReac Severe Vomiting Verified 01/31/17 14:22 haloperidol [From Haldol] AdvReac stiffness Verified 01/31/17 14:22 haloperidol lactate AdvReac stiffness Verified 01/31/17 14:22 [From Haldol] lactose AdvReac Verified 01/13/18 14:27 flour Allergy Severe Vomiting Uncoded 01/31/17 14:22 History of Present Illness: I need help to stop using xanax and heroin abused Exam Limitations: No Limitations - Ebola screening Have you traveled outside of the country in the last 21 days: No Have you had contact with anyone from an Ebola affected area: No Do you have a fever: No - Review of Systems Constitutional: Chills, Loss of Appetite, Malaise, Night Sweats, Changes in sleep, Weakness EENT: reports: Nose Congestion Respiratory: reports: No Symptoms reported Cardiac: reports: No Symptoms Reported GI: reports: Nausea, Vomiting, Abdominal cramping : reports: No Symptoms Reported Musculoskeletal: reports: Back Pain, Muscle Pain Integumentary: reports: Dryness Neuro: reports: Headache, Tremors Endocrine: reports: No Symptoms Reported Hematology: reports: No Symptoms Reported Psychiatric: reports: No Sypmtoms Reported, Judgement Intact, Mood/Affect Appropiate, Orientated x3 Patient History - Patient Medical History Hx Anemia: No Hx Asthma: No Hx Chronic Obstructive Pulmonary Disease (COPD): No Hx Cancer: No Hx Cardiac Disorders: No Hx Congestive Heart Failure: No Hx Hypertension: No Hx Hypercholesterolemia: No Hx Pacemaker: No HX Cerebrovascular Accident: No Hx Seizures: No Hx Dementia: No Hx Diabetes: No Hx Gastrointestinal Disorders: Yes (celiac) Hx Liver Disease: No Hx Genitourinary Disorders: No Hx Sexually Transmitted Disorders: No Hx Renal Disease (ESRD): No Hx Thyroid Disease: No Hx Human Immunodeficiency Virus (HIV): No (2018 negative) Hx Hepatitis C: No Hx Depression: No Hx Suicide Attempt: No Hx Bipolar Disorder: No Hx Schizophrenia: No Other Medical History: no sicidal,no homicidal, - Patient Surgical History Past Surgical History: No Hx Neurologic Surgery: No Hx Cataract Extraction: No Hx Cardiac Surgery: No Hx Lung Surgery: No Hx Breast Surgery: No Hx Breast Biopsy: No Hx Abdominal Surgery: No Hx Appendectomy: No Hx Cholecystectomy: No Hx Genitourinary Surgery: No Hx Section: No Hx Orthopedic Surgery: No Hx Hysterectomy: No Other Surgical History: 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 History Hx Alcohol Use: No Hx Substance Use: Yes Substance Use Type: Heroin, Marijuana, Tranquilizers Hx Substance Use Treatment: Yes ([facility] ) - Substances Abused Alprazolam (Xanax) Route: Oral Frequency: Daily Amount used: 20MG Age of first use: 15 Date of Last Use: 01/11/18 Marijuana/Hashish Route: Smoking Frequency: Daily Heroin Route: Injection Frequency: 1-2 times per week Amount used: 10 BAGS Age of first use: 17 Date of Last Use: 01/07/18 Family Disease History - Family Disease History Family Disease History: CA: Mother (ESOPHAGUS/ SPHINCTER ISSUES), Other: Father (ALCOHOL/DRUGS), Mother, Sister (DOWN SYNDROME) Admission Physical Exam [facility] - Vital Signs Vital Signs: Vital Signs - 24 hr 01/11/18 12:14 Temperature 99.3 F Pulse Rate 93 H Respiratory 18 Rate Blood Pressure 123/68 - Physical General Appearance: Yes: Moderate Distress, Tremorous, Irritable, Sweating, Anxious HEENTM: Yes: Normal ENT Inspection, LENKA, Pharynx Normal Respiratory: Yes: Lungs Clear, Normal Breath Sounds, No Respiratory Distress Neck: Yes: Within Normal Limits, Supple, Trachea in good position Breast: Yes: Breast Exam Deferred Cardiology: Yes: Within Normal Limits, Regular Rhythm, Regular Rate, S1, S2 Abdominal: Yes: Normal Bowel Sounds, Non Tender, Flat, Soft Genitourinary: Yes: Within Normal Limits Back: Yes: Muscle Spasm Musculoskeletal: Yes: Back pain, Muscle Pain Extremities: Yes: Tremors Neurological: Yes: display maker II-XII NML intact, Fully Oriented, Alert, Motor Strength 5/5 Integumentary: Yes: Dry Lymphatic: Yes: Within Normal Limits (gynecomastia left) - Diagnostic (1) Uncomplicated sedative, hypnotic, or anxiolytic withdrawal Current Visit: Yes Status: Acute (2) Nicotine dependence Current Visit: Yes Status: Acute Qualifiers: Nicotine product type: cigarettes Substance use status: uncomplicated Qualified Code(s): F17.210 - Nicotine dependence, cigarettes, uncomplicated (3) Celiac disease Current Visit: No Status: Chronic (4) Methadone maintenance therapy patient Current Visit: No Status: Chronic Comment: pending verication (5) Gynecomastia, male Current Visit: Yes Status: Acute Comment: left Cleared for Admission [facility] - Detox or Rehab [facility] Level of Care: Medically Managed Detox Regimen/Protocol: Valium S Breath Alcohol Content Breath Alcohol Content: 0 Urine Drug Screen - Results Drug Screen Negative: No Urine Drug Screen Results: THC-Marijuana, BZO-Benzodiazepines, MTD-Methadone
[2018-01-11] MEDS ORDERED: MAGNESIUM HYDROX 2400MG/30ML ORAL SUSPENSION 30 ML CUP PO PRN (13:25)
[2018-01-11] MEDS ORDERED: MAGNESIUM CITRATE 300 ML BOTTLE PO PRN (13:25)
[2018-01-11] MEDS ORDERED: MAG HYDROX/AL HYDROX/SIMETH 30 ML UNIT-DOSE CUP PO PRN (13:25)
[2018-01-11] MEDS ORDERED: MENTHOL/PHENOL 1 EACH UD MM PRN (13:25)
[2018-01-11] MEDS ORDERED: ACETAMINOPHEN 325 MG TABLET (FP) PO PRN (13:25)
[2018-01-11] MEDS ORDERED: LOPERAMIDE HCL 2 MG CAPSULE PO PRN (13:25)
[2018-01-11] MEDS ORDERED: guaiFENesin/D-METHORPHAN HB 10 ML UNIT-DOSE CUPS PO PRN (13:25)
[2018-01-11] MEDS ORDERED: P-EPHED 60MG/TRIPROLIDI 2.5MG TABLET PO PRN (13:25)
[2018-01-11] MEDS ORDERED: diazePAM 5 MG TABLET PO ONE (13:45)
[2018-01-11] MEDS: diazePAM 5 MG TABLET PO SCH ×2 (14:49→22:22)
[2018-01-11] MEDS: NICOTINE 21 MG/24 HOURS TOPICAL PATCH TD SCH (14:54)
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
[2018-01-11] MEDS ORDERED: MELATONIN 5 MG TABLETS PO PRN (22:00)
[2018-01-11] MEDS: hydrOXYzine PAMOATE 25 MG CAPSULE (FP) PO PRN (22:22)
[2018-01-11] MEDS: QUEtiapine FUMARATE 100 MG TABLET (FP) PO SCH (22:22)
[2018-01-11] MEDS: THIAMINE HCL 100 MG TABLET (FP) PO SCH (22:22)
[2018-01-11 23:36] LABS: URINE APPEARANCE CLEAR; URINE BILIRUBIN NEGATIVE (<2.0 mg/dL); URINE COLOR COLORLESS; URINE GLUCOSE (UA) NEGATIVE (NEGATIVE); URINE KETONE NEGATIVE (NEGATIVE); URINE LEUK ESTERASE NEGATIVE (NEGATIVE); URINE NITRITE NEGATIVE (NEGATIVE); URINE PROTEIN NEGATIVE (NEGATIVE); URINE UROBILINOGEN NEGATIVE mg/dL (0.2-1.0)
[2018-01-12] MEDS: diazePAM 5 MG TABLET PO SCH ×3 (05:46→22:16)
[2018-01-12] MEDS: diazePAM 5 MG TABLET PO PRN ×2 (09:22→17:37)
[2018-01-12] MEDS ORDERED: METHADONE HCL 10 MG TABLET PO SCH (09:30)
[2018-01-12] MEDS: PRENATAL VITAMINS W/ FOLIC ACID TABLET (FP) PO SCH (10:17)
[2018-01-12] MEDS: NICOTINE 21 MG/24 HOURS TOPICAL PATCH TD SCH (10:17)
--- NOTE | 2018-01-12 10:37 | PN ---
BHS COWS - Scale Resting Pulse: 0= AL 80 or Below Sweatin= Chills/Flushing Restless Observation: 3= Extraneous Movement Pupil Size: 1= Pupils >than Normal Bone or Joint Aches: 2= Severe Diffuse Aches Runny Nose/ Eye Tearin= Runny Nose/Eyes GI Upset > 30mins: 2= Nausea/Diarrhea Tremor Observation of Outstretched Hands: 2= Slight Tremor Visible Yawning Observation: 1= 1-2x During Session Anxiety or Irritability: 2=Irritable/Anxious Goose Flesh Skin: 3=Piloerection COWS Score: 19 BHS Progress Note (SOAP) Subjective: Anxiety, irritability, interrupted sleep, shakes and sweats Objective: 01/12/18 10:34 Vital Signs 01/12/18 01/12/18 01/12/18 03:30 06:00 09:21 Temperature 96.1 F L 97.3 F L Pulse Rate 62 62 Respiratory 18 Rate Blood Pressure 127/58 L 109/71 Laboratory Last Values Urine Color Colorless 01/11/18 15:46 Urine Appearance Clear 01/11/18 15:46 Urine pH 6.0 (5.0-8.0) D 01/11/18 15:46 Ur Specific [place] 1.006 (1.010-1.035) L 01/11/18 15:46 Urine Protein Negative (NEGATIVE) 01/11/18 15:46 Urine Glucose (UA) Negative (NEGATIVE) 01/11/18 15:46 Urine Ketones Negative (NEGATIVE) 01/11/18 15:46 Urine Blood Negative (NEGATIVE) 01/11/18 15:46 Urine Nitrite Negative (NEGATIVE) 01/11/18 15:46 Urine Bilirubin Negative (<2.0 mg/dL) 01/11/18 15:46 Urine Urobilinogen Negative mg/dL (0.2-1.0) 01/11/18 15:46 Ur Leukocyte Esterase Negative (NEGATIVE) 01/11/18 15:46 UA noted, negative CBC/CMP pending Patient very anxious, reports current regimen not sufficient based on what he takes on the street, educated on detox protocol. Assessment: 01/12/18 10:34 Withdrawal sx High risk for signing out AMA Plan: Continue detox Reassurance given.
[2018-01-12] MEDS ORDERED: METHADONE HCL 5 MG TABLET ONE (10:47)
[2018-01-12] MEDS ORDERED: METHADONE HCL 40 MG DISPERSABLE TABLET ONE (10:48)
[2018-01-12] MEDS ORDERED: METHADONE HCL 10 MG TABLET ONE (10:48)
[2018-01-12 10:49] LABS: HEMATOCRIT 44.2 % (35.4-49); HEMOGLOBIN 14.7 GM/dL (11.7-16.9); MCH 30.7 pg (25.7-33.7); MCHC 33.2 g/dl (32.0-35.9); MEAN CELL VOLUME 92.5 fl (80-96); MEAN PLT VOLUME 10.9 fl (7.5-11.1); PLATELET COUNT 182 K/MM3 (134-434); RBC 4.78 M/mm3 (4.00-5.60)
[2018-01-12] MEDS: METHADONE 40 MG, METHADONE 30 MG, METHADONE 5 MG PO SCH (10:52)
[2018-01-12 11:07] LABS: ALBUMIN 4.5 g/dl (3.4-5.0); ALK PHOS 102 U/L (45-117); ANION GAP 8 MMOL/L (8-16); BILIRUBIN,TOTAL 0.3 mg/dL (0.2-1); BLOOD UREA NITROGEN 13 mg/dL (7-18); CALCIUM 9.8 mg/dL (8.5-10.1); CHLORIDE 106 mmol/L (98-107); CO2 25 mmol/L (21-32); CREATININE 0.8 mg/dL (0.55-1.3); GLUCOSE,RANDOM 71 mg/dL (74-106); POTASSIUM 4.4 mmol/L (3.5-5.1); SGOT/AST 28 U/L (15-37); SGPT/ALT 44 U/L (13-61); SODIUM 139 mmol/L (136-145); TOT PROT 8.1 g/dl (6.4-8.2)
[2018-01-12] MEDS ORDERED: FLU VACCINE QUAD 60 MCG/0.5 ML (MDV 18-19) IM ONE (12:00)
[2018-01-12] MEDS: NICOTINE POLACRILEX 2 MG GUM BC PRN (19:22)
[2018-01-12] MEDS: hydrOXYzine PAMOATE 25 MG CAPSULE (FP) PO PRN (20:08)
[2018-01-12] MEDS: THIAMINE HCL 100 MG TABLET (FP) PO SCH (22:16)
[2018-01-12] MEDS: QUEtiapine FUMARATE 100 MG TABLET (FP) PO SCH (22:16)
[2018-01-13] MEDS ORDERED: METHADONE HCL 40 MG DISPERSABLE TABLET ONE (04:57)
[2018-01-13] MEDS ORDERED: METHADONE HCL 10 MG TABLET ONE (04:57)
[2018-01-13] MEDS ORDERED: METHADONE HCL 5 MG TABLET ONE (04:57)
[2018-01-13] MEDS: METHADONE 40 MG, METHADONE 30 MG, METHADONE 5 MG PO SCH (05:29)
[2018-01-13] MEDS: diazePAM 5 MG TABLET PO PRN ×2 (05:32→17:44)
[2018-01-13] MEDS: NICOTINE 21 MG/24 HOURS TOPICAL PATCH TD SCH (10:18)
[2018-01-13] MEDS: PRENATAL VITAMINS W/ FOLIC ACID TABLET (FP) PO SCH (10:18)
[2018-01-13] MEDS: diazePAM 5 MG TABLET PO SCH ×2 (10:18→22:28)
[2018-01-13] MEDS: NICOTINE POLACRILEX 2 MG GUM BC PRN (10:52)
[2018-01-13] MEDS: IBUPROFEN 400 MG TABLET (FP) PO PRN (13:48)
--- NOTE | 2018-01-13 14:34 | PN ---
[facility] CIWA - CIWA Score Nausea/Vomitin-No Nausea/No Vomiting Muscle Tremors: 3 Anxiety: 2 Agitation: 3 Paroxysmal Sweats: 1-Minimal Palms Moist Orientation: 0-Oriented Tacttile Disturbances: 1-Very Mild Itch/Numbness Auditory Disturbances: 0-None Visual Disturbances: 0-None Headache: 1-Very Mild CIWA-Ar Total Score: 11 BHS Progress Note (SOAP) Subjective: tremor sweat restlessness anxiety Objective: 01/13/18 14:33 Vital Signs Temperature 97.8 F 01/13/18 14:14 Pulse Rate 84 01/13/18 14:14 Respiratory Rate 18 01/13/18 14:14 Blood Pressure 124/72 01/13/18 14:14 O2 Sat by Pulse Oximetry (%) Laboratory Last Values WBC 10.0 K/mm3 (4.0-10.0) 01/12/18 05:35 RBC 4.78 M/mm3 (4.00-5.60) 01/12/18 05:35 Hgb 14.7 GM/dL (11.7-16.9) 01/12/18 05:35 Hct 44.2 % (35.4-49) 01/12/18 05:35 MCV 92.5 fl (80-96) 01/12/18 05:35 MCH 30.7 pg (25.7-33.7) 01/12/18 05:35 MCHC 33.2 g/dl (32.0-35.9) 01/12/18 05:35 RDW 13.0 % (11.9-15.9) 01/12/18 05:35 Plt Count 182 K/MM3 (134-434) 01/12/18 05:35 MPV 10.9 fl (7.5-11.1) 01/12/18 05:35 Sodium 139 mmol/L (136-145) 01/12/18 05:35 Potassium 4.4 mmol/L (3.5-5.1) 01/12/18 05:35 Chloride 106 mmol/L (98-107) 01/12/18 05:35 Carbon Dioxide 25 mmol/L (21-32) 01/12/18 05:35 Anion Gap 8 MMOL/L (8-16) 01/12/18 05:35 BUN 13 mg/dL (7-18) 01/12/18 05:35 Creatinine 0.8 mg/dL (0.55-1.3) 01/12/18 05:35 Creat Clearance w eGFR > 60 (>60) 01/12/18 05:35 Random Glucose 71 mg/dL (74-106) L 01/12/18 05:35 Calcium 9.8 mg/dL (8.5-10.1) 01/12/18 05:35 Total Bilirubin 0.3 mg/dL (0.2-1) 01/12/18 05:35 AST 28 U/L (15-37) 01/12/18 05:35 ALT 44 U/L (13-61) 01/12/18 05:35 Alkaline Phosphatase 102 U/L (45-117) 01/12/18 05:35 Total Protein 8.1 g/dl (6.4-8.2) 01/12/18 05:35 Albumin 4.5 g/dl (3.4-5.0) 01/12/18 05:35 Urine Color Colorless 01/11/18 15:46 Urine Appearance Clear 01/11/18 15:46 Urine pH 6.0 (5.0-8.0) D 01/11/18 15:46 Ur Specific [place] 1.006 (1.010-1.035) L 01/11/18 15:46 Urine Protein Negative (NEGATIVE) 01/11/18 15:46 Urine Glucose (UA) Negative (NEGATIVE) 01/11/18 15:46 Urine Ketones Negative (NEGATIVE) 01/11/18 15:46 Urine Blood Negative (NEGATIVE) 01/11/18 15:46 Urine Nitrite Negative (NEGATIVE) 01/11/18 15:46 Urine Bilirubin Negative (<2.0 mg/dL) 01/11/18 15:46 Urine Urobilinogen Negative mg/dL (0.2-1.0) 01/11/18 15:46 Ur Leukocyte Esterase Negative (NEGATIVE) 01/11/18 15:46 RPR Titer Nonreactive (NONREACTIVE) 01/12/18 05:35 HIV 1&2 Antibody Screen Negative 01/12/18 05:35 HIV P24 Antigen Negative 01/12/18 05:35 lab noted Assessment: 01/13/18 14:33 withdrawal sx 01/13/18 14:34 methadone maintenance program Plan: continue detox methadone 75 mg
[2018-01-13] MEDS: QUEtiapine FUMARATE 100 MG TABLET (FP) PO SCH (22:28)
[2018-01-13] MEDS: hydrOXYzine PAMOATE 25 MG CAPSULE (FP) PO PRN (22:28)
[2018-01-13] MEDS: THIAMINE HCL 100 MG TABLET (FP) PO SCH (22:28)
[2018-01-14] MEDS ORDERED: METHADONE HCL 5 MG TABLET ONE (06:04)
[2018-01-14] MEDS ORDERED: METHADONE HCL 40 MG DISPERSABLE TABLET ONE (06:05)
[2018-01-14] MEDS ORDERED: METHADONE HCL 10 MG TABLET ONE (06:05)
[2018-01-14] MEDS: METHADONE 40 MG, METHADONE 30 MG, METHADONE 5 MG PO SCH (07:25)
[2018-01-14] MEDS: diazePAM 5 MG TABLET PO PRN (07:29)
[2018-01-14] MEDS: PRENATAL VITAMINS W/ FOLIC ACID TABLET (FP) PO SCH (10:35)
[2018-01-14] MEDS: NICOTINE 21 MG/24 HOURS TOPICAL PATCH TD SCH (10:35)
[2018-01-14] MEDS: diazePAM 5 MG TABLET PO SCH ×2 (10:35→22:15)
[2018-01-14] MEDS: hydrOXYzine PAMOATE 25 MG CAPSULE (FP) PO PRN (10:38)
[2018-01-14] MEDS: NICOTINE POLACRILEX 2 MG GUM BC PRN ×2 (10:39→22:41)
--- NOTE | 2018-01-14 14:43 | PN ---
BHS Progress Note (SOAP) Subjective: feeling better less sweat no tremor no gi distress sleep better at night social with peers in day room Objective: 01/14/18 14:42 Vital Signs Temperature 98.4 F 01/14/18 12:50 Pulse Rate 92 H 01/14/18 12:50 Respiratory Rate 18 01/14/18 12:50 Blood Pressure 123/79 01/14/18 12:50 O2 Sat by Pulse Oximetry (%) Laboratory Last Values WBC 10.0 K/mm3 (4.0-10.0) 01/12/18 05:35 RBC 4.78 M/mm3 (4.00-5.60) 01/12/18 05:35 Hgb 14.7 GM/dL (11.7-16.9) 01/12/18 05:35 Hct 44.2 % (35.4-49) 01/12/18 05:35 MCV 92.5 fl (80-96) 01/12/18 05:35 MCH 30.7 pg (25.7-33.7) 01/12/18 05:35 MCHC 33.2 g/dl (32.0-35.9) 01/12/18 05:35 RDW 13.0 % (11.9-15.9) 01/12/18 05:35 Plt Count 182 K/MM3 (134-434) 01/12/18 05:35 MPV 10.9 fl (7.5-11.1) 01/12/18 05:35 Sodium 139 mmol/L (136-145) 01/12/18 05:35 Potassium 4.4 mmol/L (3.5-5.1) 01/12/18 05:35 Chloride 106 mmol/L (98-107) 01/12/18 05:35 Carbon Dioxide 25 mmol/L (21-32) 01/12/18 05:35 Anion Gap 8 MMOL/L (8-16) 01/12/18 05:35 BUN 13 mg/dL (7-18) 01/12/18 05:35 Creatinine 0.8 mg/dL (0.55-1.3) 01/12/18 05:35 Creat Clearance w eGFR > 60 (>60) 01/12/18 05:35 Random Glucose 71 mg/dL (74-106) L 01/12/18 05:35 Calcium 9.8 mg/dL (8.5-10.1) 01/12/18 05:35 Total Bilirubin 0.3 mg/dL (0.2-1) 01/12/18 05:35 AST 28 U/L (15-37) 01/12/18 05:35 ALT 44 U/L (13-61) 01/12/18 05:35 Alkaline Phosphatase 102 U/L (45-117) 01/12/18 05:35 Total Protein 8.1 g/dl (6.4-8.2) 01/12/18 05:35 Albumin 4.5 g/dl (3.4-5.0) 01/12/18 05:35 Urine Color Colorless 01/11/18 15:46 Urine Appearance Clear 01/11/18 15:46 Urine pH 6.0 (5.0-8.0) D 01/11/18 15:46 Ur Specific [place] 1.006 (1.010-1.035) L 01/11/18 15:46 Urine Protein Negative (NEGATIVE) 01/11/18 15:46 Urine Glucose (UA) Negative (NEGATIVE) 01/11/18 15:46 Urine Ketones Negative (NEGATIVE) 01/11/18 15:46 Urine Blood Negative (NEGATIVE) 01/11/18 15:46 Urine Nitrite Negative (NEGATIVE) 01/11/18 15:46 Urine Bilirubin Negative (<2.0 mg/dL) 01/11/18 15:46 Urine Urobilinogen Negative mg/dL (0.2-1.0) 01/11/18 15:46 Ur Leukocyte Esterase Negative (NEGATIVE) 01/11/18 15:46 RPR Titer Nonreactive (NONREACTIVE) 01/12/18 05:35 HIV 1&2 Antibody Screen Negative 01/12/18 05:35 HIV P24 Antigen Negative 01/12/18 05:35 lab noted Assessment: 01/14/18 14:42 mild withdrawal sx Plan: medically supervised detox
[2018-01-14] MEDS ORDERED: diazePAM 5 MG TABLET PO ONE (16:15)
[2018-01-14] MEDS: IBUPROFEN 400 MG TABLET (FP) PO PRN (20:19)
[2018-01-14] MEDS ORDERED: QUEtiapine FUMARATE 50 MG TABLET PO SCH (22:00)
[2018-01-14] MEDS: THIAMINE HCL 100 MG TABLET (FP) PO SCH (22:14)
[2018-01-14] MEDS: QUEtiapine FUMARATE 100 MG TABLET (FP) PO SCH (22:15)
--- NOTE | 2018-01-14 23:56 | EKG ---
Test Reason : Blood Pressure : / mmHG Vent. Rate : 080 BPM Atrial Rate : 080 BPM P-R Int : 158 ms QRS Dur : 086 ms QT Int : 386 ms P-R-T Axes : 050 -18 031 degrees QTc Int : 445 ms NORMAL SINUS RHYTHM NORMAL ECG WHEN COMPARED WITH ECG OF 19-JAN-2017 15:26, NO SIGNIFICANT CHANGE WAS FOUND Confirmed by CHRISTINE ARGUETA MD ([id number]) on 01/14/2018 11:55:30 PM Referred By: Confirmed By:CHRISTINE ARGUETA MD
[2018-01-15] MEDS ORDERED: METHADONE HCL 5 MG TABLET ONE (06:12)
[2018-01-15] MEDS ORDERED: METHADONE HCL 40 MG DISPERSABLE TABLET ONE (06:13)
[2018-01-15] MEDS ORDERED: METHADONE HCL 10 MG TABLET ONE (06:13)
[2018-01-15] MEDS: METHADONE 40 MG, METHADONE 30 MG, METHADONE 5 MG PO SCH (08:50)
[2018-01-15] MEDS ORDERED: diazePAM 5 MG TABLET PO SCH ×2 (09:00→10:00)
[2018-01-15 09:37] VITALS: BP 127/78; PULSE 89; TEMP 97.7
--- NOTE | 2018-01-15 12:17 | DS ---
[facility] Detox Discharge Summary Admission Date: 01/11/18 Discharge Date: 01/15/18 - History Present History: Sedative Dependence Additional Comments: 22 years old male admitted on 01/11/18 for benzo withdrawal sx completed detox regimen tolerated well denies benzo withdrawal sx alert oriented x 3 no acute distress aftercare [facility] - Physical Exam Results Vital Signs: Vital Signs Temperature 97.7 F 01/15/18 09:37 Pulse Rate 89 01/15/18 09:37 Respiratory Rate 18 01/15/18 09:37 Blood Pressure 127/78 01/15/18 09:37 O2 Sat by Pulse Oximetry (%) Pertinent Admission Physical Exam Findings: benzo withdrawal sx Vital Signs Temperature 97.7 F 01/15/18 09:37 Pulse Rate 89 01/15/18 09:37 Respiratory Rate 18 01/15/18 09:37 Blood Pressure 127/78 01/15/18 09:37 O2 Sat by Pulse Oximetry (%) Laboratory Last Values WBC 10.0 K/mm3 (4.0-10.0) 01/12/18 05:35 RBC 4.78 M/mm3 (4.00-5.60) 01/12/18 05:35 Hgb 14.7 GM/dL (11.7-16.9) 01/12/18 05:35 Hct 44.2 % (35.4-49) 01/12/18 05:35 MCV 92.5 fl (80-96) 01/12/18 05:35 MCH 30.7 pg (25.7-33.7) 01/12/18 05:35 MCHC 33.2 g/dl (32.0-35.9) 01/12/18 05:35 RDW 13.0 % (11.9-15.9) 01/12/18 05:35 Plt Count 182 K/MM3 (134-434) 01/12/18 05:35 MPV 10.9 fl (7.5-11.1) 01/12/18 05:35 Sodium 139 mmol/L (136-145) 01/12/18 05:35 Potassium 4.4 mmol/L (3.5-5.1) 01/12/18 05:35 Chloride 106 mmol/L (98-107) 01/12/18 05:35 Carbon Dioxide 25 mmol/L (21-32) 01/12/18 05:35 Anion Gap 8 MMOL/L (8-16) 01/12/18 05:35 BUN 13 mg/dL (7-18) 01/12/18 05:35 Creatinine 0.8 mg/dL (0.55-1.3) 01/12/18 05:35 Creat Clearance w eGFR > 60 (>60) 01/12/18 05:35 Random Glucose 71 mg/dL (74-106) L 01/12/18 05:35 Calcium 9.8 mg/dL (8.5-10.1) 01/12/18 05:35 Total Bilirubin 0.3 mg/dL (0.2-1) 01/12/18 05:35 AST 28 U/L (15-37) 01/12/18 05:35 ALT 44 U/L (13-61) 01/12/18 05:35 Alkaline Phosphatase 102 U/L (45-117) 01/12/18 05:35 Total Protein 8.1 g/dl (6.4-8.2) 01/12/18 05:35 Albumin 4.5 g/dl (3.4-5.0) 01/12/18 05:35 Urine Color Colorless 01/11/18 15:46 Urine Appearance Clear 01/11/18 15:46 Urine pH 6.0 (5.0-8.0) D 01/11/18 15:46 Ur Specific [place] 1.006 (1.010-1.035) L 01/11/18 15:46 Urine Protein Negative (NEGATIVE) 01/11/18 15:46 Urine Glucose (UA) Negative (NEGATIVE) 01/11/18 15:46 Urine Ketones Negative (NEGATIVE) 01/11/18 15:46 Urine Blood Negative (NEGATIVE) 01/11/18 15:46 Urine Nitrite Negative (NEGATIVE) 01/11/18 15:46 Urine Bilirubin Negative (<2.0 mg/dL) 01/11/18 15:46 Urine Urobilinogen Negative mg/dL (0.2-1.0) 01/11/18 15:46 Ur Leukocyte Esterase Negative (NEGATIVE) 01/11/18 15:46 RPR Titer Nonreactive (NONREACTIVE) 01/12/18 05:35 HIV 1&2 Antibody Screen Negative 01/12/18 05:35 HIV P24 Antigen Negative 01/12/18 05:35 lab noted - Treatment Hospital Course: Detox Protocol Followed, Detoxed Safely, Responded well, Discharged Condition Good, Rehab Referral Accepted Patient has Accepted a Rehab Referral to: methadone program 75 mg po daily [facility] - Medication Discharge Medications: Ambulatory Orders Quetiapine Fumarate [Seroquel -] 200 mg PO HS 08/11/16 Quetiapine Fumarate [Seroquel -] 100 mg PO DAILY 01/31/17 Methadone [Dolophine -] 75 mg PO DAILY 01/13/18 - Diagnosis (1) Benzodiazepine dependence Status: Acute (2) Nicotine dependence Status: Acute Qualifiers: Nicotine product type: cigarettes Substance use status: in withdrawal Qualified Code(s): F17.213 - Nicotine dependence, cigarettes, with withdrawal (3) Substance induced mood disorder Status: Suspected (4) Methadone maintenance therapy patient Status: Chronic - AMA Did Patient Leave Against Medical Advice: No
== END 2018-01-15 09:37 | disposition home or self-care (01) | DRG 773 ==
LOC: YASAS 12:03 → Y6N 13:02
PROC: HZ2ZZZZ Detoxification Services for Substance Abuse Treatment (ICD-10-PCS; principal; 2018-01-11)
DX: F13.230 Sedative, hypnotic or anxiolytic dependence with withdrawal, uncomplicated (principal); F12.20 Cannabis dependence, uncomplicated; F11.20 Opioid dependence, uncomplicated; F17.213 Nicotine dependence, cigarettes, with withdrawal; F19.24 Other psychoactive substance dependence with psychoactive substance-induced mood disorder; G47.00 Insomnia, unspecified; K90.0 Celiac disease; N62 Hypertrophy of breast
CPT/HCPCS: 36415; 80053; 81003; 85027; 86593; 87389; 93005; 93010

== ENCOUNTER 2018-05-16 20:05 | Emergency (ER) | payer OTHER ==
--- NOTE | 2018-05-16 20:24 | PDOC ---
History of Present Illness - General History Source: Patient Exam Limitations: No Limitations - History of Present Illness Initial Comments: 05/16/18 20:48 The patient is a 22 year old male, with a significant PMH celiac, ADHD,anxiety and insomnia, who presents to the emergency department complaining of tooth pain that began approximately 3 days ago. The patient states the unbearable pain is located to the upper and bottom wisdom teeth that radiates to his head. He states he is unable to sleep at night secondary to the pain. The patient states no alleviating or exacerbating factors. The patient denies any numbness or tingling. Denies chest pain, shortness of breath, headache and dizziness. PAST SURGICAL HISTORY: no significant history FAMILY HISTORY: no pertinent history SOCIAL HISTORY: Smokes everyday (20 cigarettes per day).Patient admits to heroin, marijuana and tranquilizer use MEDICATIONS: reviewed ALLERGIES: As per nursing notes Adult ROS General: No fevers or chills, no weakness, no weight loss HEENT:+Tooth pain. No change in vision. No sore throat,. No ear pain CardioVascular: No chest pain or shortness of breath Respiratory:No cough, or wheezing. Gastrointestinal: no nausea, vomiting, diarrhea or constipation, No rectal bleeding Genitourinary: No dysuria, hematuria, or frequency Musculoskeletal: No joint or muscle pain or swelling Neurologic: No headache, vertigo, dizziness or loss of consciousness Psychiatric: nor depression Skin: No rashes or easy bruising Endocrine: no increased thirst or abnormal weight change Allergic: no skin or latex allergy All other systems reviewed and normal Basic PE GENERAL: The patient is awake, alert, and fully oriented, in no acute distress. HEAD: Normal with no signs of trauma. EYES: Pupils equal, round and reactive to light, extraocular movements intact, sclera anicteric, conjunctiva clear. MOUTH:+Upper and lower wisdom teeth show evidence of impaction and partially rotted away. Right 3rd molar is rotted down to virtually no tooth left. No palpable abscess or collection of the periodontal tissue. At this time no tenderness of the periodontal tissue. EXTREMITIES: Normal range of motion, no edema. NEUROLOGICAL: Normal speech, normal gait. PSYCH: Normal mood, normal affect. SKIN: Warm, Dry, normal turgor, no rashes or lesions noted. <Ike Gardner - Last Filed: 05/16/18 20:48> - General History Source: Patient Exam Limitations: No Limitations - History of Present Illness Initial Comments: 05/16/18 20:24 A portion of this note was documented by scribe services under my direction. I have reviewed the details of the note, within reason, and agree with the documentation with the following case summary and management plan written by me. Patient treated in the ED. Nursing notes are reviewed and incorporated into the medical decision-making. Vital signs reviewed. Assessment and plan: This is a 22-year-old male who comes in complaining of dental pain. Patient has very poor dentition of his wisdom teeth. All 4 of his worsening tooth. Be impacted as well as mostly rotted away. Patient was given a shot of Toradol and prescription for Naprosyn was sent to his pharmacy. Patient was also told to go to the [facility] dental clinic for further evaluation and help with his problem. <Rodolfo Douglas I - Last Filed: 05/16/18 21:11> - General Chief Complaint: Toothache Stated Complaint: TOOTH PAIN Time Seen by Provider: 05/16/18 20:08 Past History <Ike Gardner - Last Filed: 05/16/18 20:48> - Past Medical History Anemia: No Asthma: No Cancer: No Cardiac Disorders: No CVA: No COPD: No CHF: No Dementia: No Diabetes: No GI Disorders: Yes (celiac) Disorders: No HTN: No Hypercholesterolemia: No Kidney Stones: No Liver Disease: No Psychiatric Problems: Yes (ADHD/ANXIETY/INSOMNIA) Seizures: No Thyroid Disease: No - Surgical History Abdominal Surgery: No Appendectomy: No Cardiac Surgery: No Cholecystectomy: No Lung Surgery: No Neurologic Surgery: No Orthopedic Surgery: No - Reproductive History Testicular Surgery: No - Immunization History Immunization Up to Date: Yes - Suicide/Smoking/Psychosocial Hx Smoking Status: No Smoking History: Current every day smoker Have you smoked in the past 12 months: Yes Number of Cigarettes Smoked Daily: 20 Cigars Per Day: 0 'Breaking Loose' booklet given: 01/11/18 Hx Alcohol Use: No Drug/Substance Use Hx: Yes Substance Use Type: Heroin, Marijuana, Tranquilizers Hx Substance Use Treatment: Yes ([facility] ) <Rodolfo Douglas I - Last Filed: 05/16/18 21:11> - Past Medical History Allergies/Adverse Reactions: Allergies Allergy/AdvReac Type Severity Reaction Status Date / Time gluten Allergy Verified 01/11/18 12:58 fructose AdvReac Severe Vomiting Verified 01/31/17 14:22 wheat AdvReac Severe Vomiting Verified 01/31/17 14:22 haloperidol [From Haldol] AdvReac stiffness Verified 01/31/17 14:22 haloperidol lactate AdvReac stiffness Verified 01/31/17 14:22 [From Haldol] lactose AdvReac Verified 01/13/18 14:27 flour Allergy Severe Vomiting Uncoded 01/31/17 14:22 Home Medications: Ambulatory Orders Quetiapine Fumarate [Seroquel -] 200 mg PO HS 08/11/16 Quetiapine Fumarate [Seroquel -] 100 mg PO DAILY 01/31/17 Methadone [Dolophine -] 75 mg PO DAILY 01/13/18 Naproxen [Naprosyn] 500 mg PO BID #20 tablet 05/16/18 *Physical Exam - Vital Signs Last Vital Signs Temp Pulse Resp BP Pulse Ox 98.9 F 93 H 18 114/67 96 05/16/18 20:06 05/16/18 20:06 05/16/18 20:06 05/16/18 20:06 05/16/18 20:06 <Ike Gardner - Last Filed: 05/16/18 20:48> Moderate Sedation - Procedure Monitoring Vital Signs: Procedure Monitoring Vital Signs Temperature 98.9 F 05/16/18 20:06 Pulse Rate 93 H 05/16/18 20:06 Respiratory Rate 18 05/16/18 20:06 Blood Pressure 114/67 05/16/18 20:06 O2 Sat by Pulse Oximetry (%) 96 05/16/18 20:06 <Ike Gardner - Last Filed: 05/16/18 20:48> ED Treatment Course - Medications Given in the ED: ED Medications Discontinued Medications Generic Name Dose Route Start Last Admin Trade Name Freq PRN Reason Stop Dose Admin Ketorolac Tromethamine 60 mg 05/16/18 20:29 05/16/18 20:30 Toradol Injection - IM 05/16/18 20:30 60 mg ONCE ONE Administration <Ike Gardner - Last Filed: 05/16/18 20:48> *DC/Admit/Observation/Transfer - Attestations Scribe Attestion: 05/16/18 20:48 Documentation prepared by Ike Gardner, acting as biomedical electronics technician for Rodolfo Douglas MD. <Ike Gardner - Last Filed: 05/16/18 20:48> - Discharge Dispostion Decision to Admit order: No <Rodolfo Douglas I - Last Filed: 05/16/18 21:11> Diagnosis at time of Disposition: Dentalgia - Discharge Dispostion Disposition: HOME Condition at time of disposition: Good - Prescriptions Prescriptions: Naproxen [Naprosyn] 500 mg PO BID #20 tablet - Patient Instructions Printed Discharge Instructions: DI for Dental Pain Additional Instructions: I sent a perscription to your pharmacy for naprosyn. Get it filled and take one tablet twice a day for the pain. Go to the [facility] and ask for directions to the dental clinic as discussed with the doctor. Return to the emergency department immediately with ANY new, persistent or worsening symptoms. Continue any medications as previously prescribed by your physician. You should follow up with your primary doctor as soon as possible regarding today's emergency department visit. . Please make sure your doctor reviews the results of your emergency evaluation. Thank you for coming to the Emergency Department today for your care. It was a pleasure to see you today. Please note that your evaluation is INCOMPLETE until you follow-up with your doctor.
[2018-05-16 20:27] VITALS: BP 114/67; PULSE 93; TEMP 98.9; BMI 29.9
[2018-05-16] MEDS ORDERED: KETOROLAC TROMETHAMINE 60 MG/2 ML VIAL ONE (20:29)
[2018-05-16] MEDS ORDERED: KETOROLAC TROMETHAMINE 60 MG/2 ML VIAL IM ONE (20:29)
== END 2018-05-16 20:42 | disposition home or self-care (01) ==
LOC: FER 20:05
PROC: 3E0233Z Introduction of Anti-inflammatory into Muscle, Percutaneous Approach (ICD-10-PCS; principal; 2018-05-16)
DX: K08.89 Other specified disorders of teeth and supporting structures (principal); F90.9 Attention-deficit hyperactivity disorder, unspecified type; F41.9 Anxiety disorder, unspecified; G47.00 Insomnia, unspecified; F17.210 Nicotine dependence, cigarettes, uncomplicated
CPT/HCPCS: 99282-25

== ENCOUNTER 2018-07-05 13:25 | Emergency (ER) | payer OTHER ==
--- NOTE | 2018-07-05 13:29 | PDOC ---
History of Present Illness - General Chief Complaint: Pain Stated Complaint: ABD PAIN History Source: Patient Exam Limitations: No Limitations - History of Present Illness Initial Comments: 22 yo M with a hx of Celiac's Disease, ADHD, anxiety, hx of polysubstance abuse (heroin, MJ (last MJ use 4 weeks ago)), and recent methadone cessation (3 weeks ago) presents to the emergency department with abdominal pain for 3 days. Per the patient, it was gradual onset, located in the periumbilical region as well as right and left of it, described as sharp/stabbing, non radiating, 9/10 in severity, without aggravating and relieving factors. endorses 1x vomiting event (NBNB). States he has never had pain like this in the past before and does not feel like his usual celiacs. Denies the following: fever, chills, nausea, headaches, visual changes, dysuria, hematuria, diarrhea, heamtochezia, back pain , and leg pain/swelling. Denies trauma. Shx: None Social: Endorses tobacco smoke. Denies current ilicit substance abuse. Denies alcohol. Past History - Past Medical History Allergies/Adverse Reactions: Allergies Allergy/AdvReac Type Severity Reaction Status Date / Time gluten Allergy Verified 07/05/18 13:29 fructose AdvReac Severe Vomiting Verified 07/05/18 13:29 wheat AdvReac Severe Vomiting Verified 07/05/18 13:29 haloperidol [From Haldol] AdvReac stiffness Verified 07/05/18 13:29 haloperidol lactate AdvReac stiffness Verified 07/05/18 13:29 [From Haldol] lactose AdvReac Verified 07/05/18 13:29 flour Allergy Severe Vomiting Uncoded 07/05/18 13:29 Home Medications: Ambulatory Orders NK [No Known Home Medication] 07/05/18 Anemia: No Asthma: No Cancer: No Cardiac Disorders: No CVA: No COPD: No CHF: No Dementia: No Diabetes: No GI Disorders: Yes (celiac) Disorders: No HTN: No Hypercholesterolemia: No Kidney Stones: No Liver Disease: No Psychiatric Problems: Yes (ADHD/ANXIETY/INSOMNIA) Seizures: No Thyroid Disease: No - Surgical History Abdominal Surgery: No Appendectomy: No Cardiac Surgery: No Cholecystectomy: No Lung Surgery: No Neurologic Surgery: No Orthopedic Surgery: No - Reproductive History Testicular Surgery: No - Immunization History Immunization Up to Date: Yes - Suicide/Smoking/Psychosocial Hx Smoking Status: No Smoking History: Current every day smoker Have you smoked in the past 12 months: Yes Number of Cigarettes Smoked Daily: 20 Cigars Per Day: 0 'Breaking Loose' booklet given: 01/11/18 Hx Alcohol Use: No Drug/Substance Use Hx: Yes Substance Use Type: Heroin, Marijuana, Tranquilizers Hx Substance Use Treatment: Yes (sj ) Review of Systems - Review of Systems Able to Perform ROS?: Yes Is the patient limited [place] proficient: No Constitutional: No: Chills, Diaphoresis, Fever, Weakness HEENTM: No: Blurred Vision, Recent change in vision, Ear Pain, Nose Pain, Throat Pain, Mouth Pain Respiratory: No: Cough, Shortness of Breath, Hemoptysis Cardiac (ROS): No: Chest Pain, Lightheadedness, Palpitations, Syncope, Chest Tightness ABD/GI: Yes: Vomiting, Abdominal cramping. No: Constipated, Diarrhea, Nausea, Rectal Bleeding, Tarry Stools : No: Burning, Dysuria, Hematuria, Incontinence Musculoskeletal: No: Back Pain, Gout, Joint Pain, Neck Pain Integumentary: No: Bruising, Erythema, Rash Neurological: No: Headache, Numbness, Tingling, Tremors Psychiatric: No: Change in Appetite Endocrine: No: Unexplained Weight Gain Hematologic/Lymphatic: No: Anemia *Physical Exam - Physical Exam General Appearance: Yes: Nourished, Appropriately Dressed. No: Apparent Distress, Intoxicated HEENT: positive: EOMI, LENKA, Normal Voice, Symmetrical, Pharynx Normal, Hearing Grossly Normal. negative: Pale Conjunctivae, Scleral Icterus (R), Scleral Icterus (L), Muffled/Hoarse voice, Pharyngeal Erythema, Tonsillar Exudate, Tonsillar Erythema, Nasal Congestion, Rhinorrhea, Sinus Tenderness, Excessive drooling Neck: positive: Trachea midline, Supple. negative: Tender, Lymphadenopathy (R) , Lymphadenopathy (L), Tender lateral, Tender midline Respiratory/Chest: positive: Lungs Clear, Normal Breath Sounds. negative: Chest Tender, Respiratory Distress, Accessory Muscle Use, Crackles, Rales, Rhonchi, Stridor, Wheezing Cardiovascular: positive: Regular Rhythm, Regular Rate, S1, S2. negative: Systolic Murmur Gastrointestinal/Abdominal: positive: Normal Bowel Sounds, Tender (RUQ, epigastric, periumbilical. Worse in the RUQ. ), Flat, Soft, Other (positive murphys). negative: Pulsatile Mass, Distended, Guarding, Rebound Lymphatic: negative: Adenopathy Musculoskeletal: positive: Normal Inspection, CVA Tenderness (right side). negative: Vertebral Tenderness Extremity: positive: Normal Capillary Refill, Normal Inspection, Normal Range of Motion. negative: Tender, Swelling, Calf Tenderness Integumentary: positive: Normal Color, Dry, Warm. negative: Rash, Swelling, Ecchymosis Neurologic: positive: skill labor II-XII NML intact, Fully Oriented, Alert, Normal Mood/ Affect, Normal Response, Motor Strength 5/5. negative: EOM Palsy, Facial Droop , Sensory Deficit ED Treatment Course - LABORATORY CBC & Chemistry Diagram: 07/05/18 14:48 07/05/18 14:48 Medical Decision Making - Medical Decision Making 07/05/18 14:30 22 yo M with a hx of Celiac's Disease, ADHD, anxiety, hx of polysubstance abuse (heroin, MJ (last MJ use 4 weeks ago)), and recent methadone cessation (3 weeks ago) presents to the emergency department with abdominal pain for 3 days. Initial vitals" Initial Vital Signs Temp Pulse Resp BP Pulse Ox 98.3 F 68 18 110/50 L 97 07/05/18 13:25 07/05/18 13:25 07/05/18 13:25 07/05/18 13:25 07/05/18 13:25 Work up: ddx: patient presents to the ED with abdominal pain located periumbilical with marked tenderness in the RUQ and epigastric region. He denies a hx of gallstones and denies hx of colicky pain in the RUQ when eating fat loaded foods. Denies recent sick contacts and no diarrhea. DDx: gastritis vs GERD vs cholelithiasis vs cholecystitis vs gastroenteritis vs RLL PNA Laboratory Tests 07/05/18 07/05/18 07/05/18 14:08 14:48 14:48 WBC 11.6 H RBC 4.95 Hgb 15.9 Hct 46.9 MCV 94.8 MCH 32.0 MCHC 33.8 RDW 12.7 Plt Count 214 D MPV 10.6 Absolute Neuts (auto) 7.9 Neutrophils % 68.7 Lymphocytes % 22.9 Monocytes % 7.5 Eosinophils % 0.1 D Basophils % 0.8 Sodium 141 Potassium 3.9 Chloride 106 Carbon Dioxide 24 Anion Gap 11 BUN 12 Creatinine 0.7 Est GFR (CKD-EPI)AfAm 156.35 Est GFR (CKD-EPI)NonAf 134.90 Random Glucose 100 Calcium 9.8 Total Bilirubin 0.4 AST 24 ALT 22 Alkaline Phosphatase 83 Total Protein 7.9 Albumin 5.1 H Lipase Pending Urine Color Yaz Urine Appearance Clear Urine pH 7.0 Urine Protein 1+ H Urine Glucose (UA) Negative Urine Ketones 1+ H Urine Blood Negative Urine Nitrite Negative Urine Bilirubin 1+ H Urine Urobilinogen 1.0 Ur Leukocyte Esterase Negative Urine RBC 0-2 Calcium Oxalate Crystal Moderate Patient was given toradol and fluids. The patient stated his pain improved but was persistent in the epigastric region. His US shows no calculi in the gallbladder, a normal size pancreas, and the rest of the exam was within normal limits. The patient is requesting to leave due to child support investigator arrangements. I asked the patient to give time for the lipase to result given that this could be the cause of his pain. The patient allowed 20 minutes for the test to result from the time of the initial request. He repeatedly asked to leave the emergency department and requested to have his IV removed. I explained to the patient that it would be of his best interest to remain until the results are known. He requested to be called with the result of the lipase. He proceeded to walk out of the emergency department with his family. The patient was of sound mind and had capacity. The patient was alert and oriented x3 and was sober at the time of the decision. He was given strict return precautions including to present back to the emergency department if his pain had not improved. 07/06/18 07:39 The patient's lipase *DC/Admit/Observation/Transfer Diagnosis at time of Disposition: Celiac disease Abdominal pain Qualifiers: Abdominal location: unspecified location Qualified Code(s): R10.9 - Unspecified abdominal pain - Discharge Dispostion Disposition: HOME Condition at time of disposition: Stable Decision to Admit order: No - Referrals Referrals: [facility] [Provider Group] - Patient Instructions Printed Discharge Instructions: DI for Abdominal Pain-Adult Additional Instructions: you were seen in the emergency department for the evaluation of your abdominal pain. your labs have been within normal limits thus far, but we do not have your lipase results. if positive, we will call you. you requested to be discharged from the emergency department before we completed the workup. please follow up with the primary medical doctor referred to you within 3 days after discharge for follow up care and management. please return to the emergency department if you have worsening symptoms or new concerning symptoms such as nausea, vomiting, fevers, and uncontrolled pain. please use over the counter medications for pain as directed on the label. thank you. - Post Discharge Activity
--- NOTE | 2018-07-05 13:53 | PDOC ---
Attending Attestation - Resident Resident Name: Harpal Machuca - ED Attending Attestation I have performed the following: I have examined & evaluated the patient, The case was reviewed & discussed with the resident, I agree w/resident's findings & plan, Exceptions are as noted - HPI HPI: 07/05/18 13:43 22y M hx of hx of celiac dz, recently on methadone(tapered off), presenst with 3 days of abdominal pain wosre inthe periumbilican region, 11/05, non radiating, constant, sharp/stabbing pain and feedls different from his celiac disease (pt has beeen complaint with diet restrictions). Pt denies any fever/chills, diarrhea, dysuria, cp, sob, colmenares. No significant worsening of pain with eating. social: smoker, previous polysubstance abuse, denie setoh abuse Physical examination GENERAL: The patient is awake, alert, and fully oriented, Nontoxic - in no acute distress. HEAD: Normocephalic, atraumatic. EYES: extraocular movements intact, sclera anicteric, conjunctiva clear. ENT: Normal voice, Moist mucous membranes. NECK: Normal range of motion, supple LUNGS: Breath sounds equal, clear to auscultation bilaterally. No wheezes, no rhonchi, no rales. HEART: Regular rate and rhythm, normal S1 and S2 without murmur, rub or gallop. ABDOMEN: Soft,mild diffuse abd ttp in the midright abdomen, no rebound/guarding EXTREMITIES: Normal range of motion, no edema. NEUROLOGICAL: No facial assymetry, Normal speech, PSYCH: Normal mood, normal affect. SKIN: Warm, Dry, normal turgor, ddx - pancreatitis, gall stones, gastritis will ck labs, us, ua toradol/fluids will reassess - Physicial Exam PE: 07/07/18 16:36 see above - Medical Decision Making 07/05/18 16:43 pts abd pain improved pt wants to leave prior to result of lipase states he will return to the ED with worsening sympmtoms
[2018-07-05 13:59] VITALS: BP 110/50; PULSE 68; TEMP 98.3; BMI 23.5
[2018-07-05] MEDS ORDERED: KETOROLAC TROMETHAMINE 30 MG/1 ML VIAL IVPUSH ONE (14:05)
[2018-07-05] MEDS ORDERED: SODIUM CHLORIDE 1,000 ML IV STA (14:05)
[2018-07-05] MEDS ORDERED: KETOROLAC TROMETHAMINE 30 MG/1 ML VIAL ONE (14:24)
[2018-07-05 14:44] LABS: CALCIUM OXALATE CRYSTALS MODERATE /hpf (NONE SEEN)
[2018-07-05 15:17] LABS: BASO % 0.8 % (0-2.0); EOS % 0.1 % (0-4.5); HEMATOCRIT 46.9 % (35.4-49); HEMOGLOBIN 15.9 GM/dl (11.7-16.9); LYMPH % 22.9 % (8-40); MCHC 33.8 g/dl (32.0-35.9); MEAN CELL VOLUME 94.8 fl (80-96); MEAN PLT VOLUME 10.6 fl (7.5-11.1); MONO % 7.5 % (3.8-10.2); NEUT % 68.7 % (42.8-82.8); PLATELET COUNT 214 K/MM3 (134-434); RBC 4.95 M/mm3 (4.00-5.60); RDW 12.7 % (11.9-15.9); WHITE BLOOD COUNT 11.6 K/mm3 (4.0-10.8)
[2018-07-05 15:24] LABS: ALBUMIN 5.1 g/dl (3.4-5.0); BILIRUBIN,TOTAL 0.4 mg/dl (0.2-1); CALCIUM 9.8 mg/dl (8.5-10); CREATININE 0.7 mg/dl (0.55-1.3); POTASSIUM 3.9 mmol/L (3.5-5.1); TOT PROT 7.9 g/dl (6.4-8.2)
== END 2018-07-05 16:05 | disposition home or self-care (01) ==
LOC: FER 13:25
PROC: 3E0333Z Introduction of Anti-inflammatory into Peripheral Vein, Percutaneous Approach (ICD-10-PCS; principal; 2018-07-05)
PROC: 3E0337Z Introduction of Electrolytic and Water Balance Substance into Peripheral Vein, Percutaneous Approach (ICD-10-PCS; 2018-07-05)
DX: K90.0 Celiac disease (principal); R10.9 Unspecified abdominal pain; F90.9 Attention-deficit hyperactivity disorder, unspecified type; F41.9 Anxiety disorder, unspecified; Z91.048 Other nonmedicinal substance allergy status
CPT/HCPCS: 36415; 71046-TC-FY; 76705-TC; 80053; 81003; 81015; 83690; 85025; 87086; 99284-25; J7030

== ENCOUNTER 2018-07-09 11:23 | Emergency (ER) | payer OTHER | END 2018-07-10 14:48 | disposition short-term general hospital (02) | LOC: FER 07-10 14:48 ==

== ENCOUNTER 2021-03-10 13:45 | Emergency (ER) | payer OTHER ==
[2021-03-10 13:59] VITALS: BP 100/58; PULSE 77; TEMP 99.3; BMI 29.0
[2021-03-10] MEDS ORDERED: ACETAMINOPHEN 325 MG TABLET (FP) PO ONE (17:43)
[2021-03-10 18:18] LABS: BASO % 0.2 % (0-2.0); EOS % 0.4 % (0-4.5); HEMATOCRIT 46.9 % (35.4-49); HEMOGLOBIN 15.8 GM/dL (11.7-16.9); LYMPH % 13.7 % (8-40); MCH 30.7 pg (25.7-33.7); MCHC 33.6 g/dl (32.0-35.9); MEAN CELL VOLUME 91.3 fl (80-96); MEAN PLT VOLUME 9.7 fl (7.5-11.1); MONO % 8.5 % (3.8-10.2); NEUT % 77.2 % (42.8-82.8); PLATELET COUNT 204 10^3/uL (134-434); RBC 5.13 M/mm3 (4.00-5.60); RDW 13.1 % (11.9-15.9); WHITE BLOOD COUNT 8.5 K/mm3 (4.0-10.0)
[2021-03-10 18:39] LABS: ALBUMIN 4.9 g/dl (3.4-5.0); BLOOD UREA NITROGEN 11.8 mg/dL (7-18); CALCIUM 10.5 mg/dL (8.5-10.1)
[2021-03-10 18:42] LABS: CREATININE 0.9 mg/dL (0.55-1.3)
[2021-03-10 18:43] LABS: TOT PROT 8.4 g/dl (6.4-8.2)
[2021-03-10 18:44] LABS: BILIRUBIN,TOTAL 0.5 mg/dL (0.2-1)
== END 2021-03-10 18:48 | disposition home or self-care (01) ==
LOC: JER 13:45
DX: R07.9 Chest pain, unspecified (principal); R10.32 Left lower quadrant pain
CPT/HCPCS: 36415; 71046-TC-FY; 80053; 83690; 85025; 87804; 93005; 93010; 99285-25; C9803; U0003; U0005

== ENCOUNTER 2021-05-19 19:34 | Emergency (ER) | payer OTHER ==
[2021-05-19 20:02] VITALS: BP 113/86; PULSE 87; BMI 25.1
[2021-05-19] MEDS ORDERED: ONDANSETRON 4 MG/2 ML VIAL IVPUSH ONE (20:58)
[2021-05-19] MEDS ORDERED: SODIUM CHLORIDE 1,000 ML IV STA (20:58)
== END 2021-05-19 21:00 | disposition left against medical advice (07) ==
LOC: JER 19:34
DX: R07.9 Chest pain, unspecified (principal)
CPT/HCPCS: 93005; 93010; 99283-25

== ENCOUNTER 2021-10-21 09:49 | Emergency (ER) | payer OTHER ==
[2021-10-21 10:02] VITALS: BP 133/84; PULSE 105; RESP 20; TEMP 99; BMI 23.5
[2021-10-21] MEDS ORDERED: DIPHTH,PERTUSS(ACELL),TET 0.5 ML DISP.SYRIN IM ONE (10:07)
== END 2021-10-21 11:10 | disposition home or self-care (01) ==
LOC: FER 09:49
PROC: 0HQFXZZ Repair Right Hand Skin, External Approach (ICD-10-PCS; principal; 2021-10-21)
DX: S61.214A Laceration without foreign body of right ring finger without damage to nail, initial encounter (principal); L30.9 Dermatitis, unspecified; W29.3XXA Contact with powered garden and outdoor hand tools and machinery, initial encounter
CPT/HCPCS: 99282-25

== ENCOUNTER 2021-11-07 16:57 | Emergency (ER) | payer SELFPAY ==
[2021-11-07 17:25] VITALS: BP 121/77; PULSE 89; RESP 16; TEMP 98.7; BMI 23.5
== END 2021-11-07 17:24 | disposition home or self-care (01) ==
LOC: FER 16:57
DX: S61.411A Laceration without foreign body of right hand, initial encounter (principal); Y99.9 Unspecified external cause status; Z48.02 Encounter for removal of sutures
CPT/HCPCS: 99281-25

== ENCOUNTER 2022-02-08 23:27 | Inpatient (IN) | payer OTHER ==
[2022-02-09 00:06] VITALS: BMI 25.8
[2022-02-09] MEDS ORDERED: ACETAMINOPHEN 325 MG TABLET (FP) PO PRN ×2 (01:06)
[2022-02-09] MEDS ORDERED: POLYETHYLENE GLYCOL (HEALTHYLAX) 3350 17 GM PACKET PO PRN (01:06)
[2022-02-09] MEDS ORDERED: MAGNESIUM HYDROX 2400MG/30ML ORAL SUSPENSION 30 ML CUP PO PRN (01:06)
[2022-02-09] MEDS ORDERED: IBUPROFEN 400 MG TABLET (FP) PO PRN (01:06)
[2022-02-09] MEDS ORDERED: MAG HYDROX/AL HYDROX/SIMETH 30 ML UNIT-DOSE CUP PO PRN (01:06)
[2022-02-09] MEDS ORDERED: IBUPROFEN 600 MG TABLET (FP) PO PRN (01:06)
[2022-02-09] MEDS ORDERED: NICOTINE POLACRILEX 2 MG GUM BUC PRN (01:06)
[2022-02-09] MEDS ORDERED: ONDANSETRON *ODT* 4 MG TABLET SL PRN (01:06)
[2022-02-09] MEDS ORDERED: METHOCARBAMOL 500 MG TABLET PO PRN (01:06)
[2022-02-09] MEDS ORDERED: NALOXONE HCL (KLOXXADO) 8 MG SPRAY NS PRN (01:06)
[2022-02-09] MEDS ORDERED: BISMUTH SUBSALICYLATE 524 MG/30 ML PO PRN (01:06)
[2022-02-09] MEDS ORDERED: BENZOCAINE/MENTHOL (CHLORASEPTIC ) LOZENGE MM PRN (01:06)
[2022-02-09] MEDS ORDERED: DICYCLOMINE HCL 10 MG CAPSULE PO PRN (01:06)
[2022-02-09] MEDS ORDERED: LOPERAMIDE HCL 2 MG CAPSULE PO PRN (01:06)
[2022-02-09] MEDS ORDERED: cloNIDine HCL 0.1 MG TABLET PO PRN (02:13)
[2022-02-09] MEDS ORDERED: diazePAM 5 MG TABLET PO PRN (02:13)
[2022-02-09] MEDS: diazePAM 5 MG TABLET PO SCH ×2 (06:21→10:24)
[2022-02-09 08:58] VITALS: BP 102/62; PULSE 60; RESP 18; TEMP 97.1
[2022-02-09] MEDS ORDERED: NICOTINE 14 MG/24 HOURS TOPICAL PATCH TD SCH (10:00)
[2022-02-09] MEDS ORDERED: methaDONE HCL 10 MG TABLET (FOR DETOX USE ONLY) PO ONE (10:00)
[2022-02-09] MEDS ORDERED: PRENATAL VITAMINS W/ FOLIC ACID TABLET (FP) PO SCH (10:00)
[2022-02-09 10:16] LABS: HEMATOCRIT 39.9 % (35.4-49); HEMOGLOBIN 13.3 GM/dL (11.7-16.9); MCHC 33.2 g/dl (32.0-35.9); MEAN CELL VOLUME 93.2 fl (80-96); PLATELET COUNT 171 10^3/uL (134-434); RBC 4.28 M/mm3 (4.00-5.60); RDW 12.6 % (11.9-15.9); WHITE BLOOD COUNT 5.7 K/mm3 (4.0-10.0)
[2022-02-09 10:39] LABS: CALCIUM 8.7 mg/dL (8.5-10.1)
[2022-02-09 10:40] LABS: ALBUMIN 3.3 g/dl (3.4-5.0); BLOOD UREA NITROGEN 14.1 mg/dL (7-18)
[2022-02-09 10:43] LABS: CREATININE 0.8 mg/dL (0.55-1.3)
[2022-02-09 10:44] LABS: BILIRUBIN,TOTAL 0.6 mg/dL (0.2-1)
[2022-02-09 10:45] LABS: TOT PROT 6.4 g/dl (6.4-8.2)
[2022-02-09 12:28] LABS: HIV INTERPRETATION NEGATIVE (NEGATIVE)
[2022-02-09] MEDS ORDERED: THIAMINE HCL 100 MG TABLET (FP) PO SCH (22:00)
[2022-02-09] MEDS ORDERED: MELATONIN 5 MG TABLETS PO SCH (22:00)
[2022-02-10] MEDS ORDERED: diazePAM 5 MG TABLET PO SCH (06:00)
[2022-02-11] MEDS ORDERED: diazePAM 5 MG TABLET PO SCH (06:00)
[2022-02-11] MEDS ORDERED: methaDONE HCL 10 MG TABLET (FOR DETOX USE ONLY) PO ONE (10:00)
[2022-02-12] MEDS ORDERED: diazePAM 5 MG TABLET PO ONE (06:00)
[2022-02-13] MEDS ORDERED: methaDONE HCL 10 MG TABLET (FOR DETOX USE ONLY) PO ONE (10:00)
== END 2022-02-09 11:12 | disposition left against medical advice (07) | DRG 894 ==
LOC: YASAS 23:27 → Y3N 02-09 02:03
PROVIDERS: ADMIT Allergy & Immunology; ATTEND Surgery
PROC: HZ2ZZZZ Detoxification Services for Substance Abuse Treatment (ICD-10-PCS; principal; 2022-02-09)
DX: F11.23 Opioid dependence with withdrawal (principal); F14.20 Cocaine dependence, uncomplicated; F13.230 Sedative, hypnotic or anxiolytic dependence with withdrawal, uncomplicated; F12.20 Cannabis dependence, uncomplicated; F17.210 Nicotine dependence, cigarettes, uncomplicated; L90.5 Scar conditions and fibrosis of skin; K90.0 Celiac disease; Z28.310 Unvaccinated for COVID-19
CPT/HCPCS: 36415; 80053; 85027; 86780; 87389; C9803-CS; U0003; U0005

== ENCOUNTER 2022-07-23 08:29 | Emergency (ER) | payer OTHER ==
[2022-07-23] MEDS ORDERED: FLUORESCEIN NA 1 EA STRIP OU ONE (08:38)
[2022-07-23] MEDS ORDERED: TETRACAINE 0.5% HCL 0.6ML DROPPER.BOTTLE OU ONE (08:38)
[2022-07-23] MEDS ORDERED: TETRACAINE 0.5% OPHTH SOLN 2 ML BOTTLE ONE (08:44)
[2022-07-23] MEDS ORDERED: FLUORESCEIN NA 1 EA STRIP ONE (08:44)
[2022-07-23 09:08] VITALS: BP 133/84; PULSE 95; RESP 18; TEMP 98.3; BMI 26.6
[2022-07-23] MEDS ORDERED: NAPHAZOLINE/PHENIRAMINE OPHTHALMIC 15 ML BOTTLE OU PRN (10:00)
== END 2022-07-23 09:36 | disposition home or self-care (01) ==
LOC: FER 08:29
DX: H10.33 Unspecified acute conjunctivitis, bilateral (principal)
CPT/HCPCS: 99283-25

== ENCOUNTER 2023-05-14 04:45 | Emergency (ER) | payer BC, OTHER ==
[2023-05-14 04:56] VITALS: BMI 24.2
[2023-05-14 06:42] LABS: BASO % 0.7 % (0-2.0); EOS % 0.2 % (0-4.5); HEMATOCRIT 40.9 % (35.4-49); HEMOGLOBIN 13.8 GM/dL (11.7-16.9); LYMPH % 23.9 % (8-40); MCH 30.6 pg (25.7-33.7); MCHC 33.8 g/dl (32.0-35.9); MEAN CELL VOLUME 90.4 fl (80-96); MEAN PLT VOLUME 8.8 fl (7.5-11.1); MONO % 9.6 % (3.8-10.2); NEUT % 65.6 % (42.8-82.8); PLATELET COUNT 248 10^3/uL (134-434); RBC 4.53 M/mm3 (4.00-5.60); WHITE BLOOD COUNT 8.2 K/mm3 (4.0-10.0)
[2023-05-14 07:05] LABS: POTASSIUM 3.7 mmol/L (3.5-5.1)
[2023-05-14 07:06] LABS: CALCIUM 9.3 mg/dL (8.5-10.1)
[2023-05-14 07:07] LABS: ALBUMIN 3.8 g/dl (3.4-5.0); BLOOD UREA NITROGEN 19.5 mg/dL (7-18)
[2023-05-14 07:10] LABS: CREATININE 0.8 mg/dL (0.55-1.3)
[2023-05-14 07:12] LABS: BILIRUBIN,TOTAL 0.4 mg/dL (0.2-1); TOT PROT 7.5 g/dl (6.4-8.2)
[2023-05-14 08:53] LABS: ERYTHROCYTE SEDIMENTATION RATE 7 mm/hr (0-10)
[2023-05-14 09:47] VITALS: BP 138/91; PULSE 81; RESP 18; TEMP 98.7
== END 2023-05-14 10:18 | disposition home or self-care (01) ==
LOC: JER 04:45
DX: M79.671 Pain in right foot (principal)
CPT/HCPCS: 36415; 73610-TC-RT-FY; 73630-TC-RT-FY; 80053; 85025; 85651; 86140; 87040; 99284-25

== ENCOUNTER 2023-07-26 01:56 | Inpatient (IN) | payer BC ==
[2023-07-26 02:20] VITALS: BMI 23.6
[2023-07-26] MEDS ORDERED: BENZONATATE 200 MG CAPSULE PO PRN (03:06)
[2023-07-26] MEDS ORDERED: POLYETHYLENE GLYCOL (HEALTHYLAX) 3350 17 GM PACKET PO PRN (03:06)
[2023-07-26] MEDS ORDERED: BISMUTH SUBSALICYLATE 524 MG/30 ML PO PRN (03:06)
[2023-07-26] MEDS ORDERED: NALOXONE HCL 0.4 MG/ML VIAL IM PRN (03:06)
[2023-07-26] MEDS ORDERED: NICOTINE POLACRILEX 2 MG LOZENGE BC PRN (03:06)
[2023-07-26] MEDS ORDERED: guaiFENesin 600 MG TABLET.ER (FP) PO PRN (03:06)
[2023-07-26] MEDS ORDERED: DICYCLOMINE HCL 10 MG CAPSULE PO PRN (03:06)
[2023-07-26] MEDS ORDERED: METHOCARBAMOL 500 MG TABLET PO PRN (03:06)
[2023-07-26] MEDS ORDERED: BENZOCAINE/MENTHOL (CHLORASEPTIC ) LOZENGE MM PRN (03:06)
[2023-07-26] MEDS ORDERED: hydrOXYzine PAMOATE 25 MG CAPSULE (FP) PO PRN (03:06)
[2023-07-26] MEDS ORDERED: LOPERAMIDE HCL 2 MG CAPSULE PO PRN (03:06)
[2023-07-26] MEDS ORDERED: IBUPROFEN 600 MG TABLET (FP) PO PRN (03:06)
[2023-07-26] MEDS ORDERED: MAG HYDROX/AL HYDROX/SIMETH 30 ML UNIT-DOSE CUP PO PRN (03:06)
[2023-07-26] MEDS ORDERED: ACETAMINOPHEN 325 MG TABLET (FP) PO PRN (03:06)
[2023-07-26] MEDS ORDERED: MAGNESIUM HYDROX 2400MG/30ML ORAL SUSPENSION 30 ML CUP PO PRN (03:06)
[2023-07-26] MEDS ORDERED: NALOXONE HCL (KLOXXADO) 8 MG SPRAY NS PRN (03:06)
[2023-07-26] MEDS ORDERED: IBUPROFEN 400 MG TABLET (FP) PO PRN (03:06)
[2023-07-26] MEDS ORDERED: ONDANSETRON *ODT* 4 MG TABLET SL PRN (03:06)
[2023-07-26 05:59] VITALS: RESP 16
[2023-07-26 08:43] VITALS: BP 118/79; PULSE 71; TEMP 98.2
[2023-07-26] MEDS ORDERED: PRENATAL VITAMINS W/ FOLIC ACID TABLET (FP) PO SCH (10:00)
[2023-07-26] MEDS ORDERED: NICOTINE 21 MG/24 HOURS TOPICAL PATCH TD SCH (10:00)
[2023-07-26] MEDS ORDERED: THIAMINE 100 MG TABLET PO SCH (22:00)
[2023-07-26] MEDS ORDERED: MELATONIN 5 MG TABLETS PO SCH (22:00)
== END 2023-07-26 09:37 | disposition home or self-care (01) | DRG 773 ==
LOC: YASAS 01:56 → Y6N 03:32 → Y3N 03:58
PROVIDERS: ADMIT Allergy & Immunology; ATTEND Allergy & Immunology
PROC: HZ2ZZZZ Detoxification Services for Substance Abuse Treatment (ICD-10-PCS; principal; 2023-07-26)
DX: F11.20 Opioid dependence, uncomplicated (principal); F13.20 Sedative, hypnotic or anxiolytic dependence, uncomplicated; F14.20 Cocaine dependence, uncomplicated; F17.210 Nicotine dependence, cigarettes, uncomplicated; F19.24 Other psychoactive substance dependence with psychoactive substance-induced mood disorder; Z91.199 Patient's noncompliance with other medical treatment and regimen due to unspecified reason; Z59.00 Homelessness unspecified; Z88.8 Allergy status to other drugs, medicaments and biological substances
CPT/HCPCS: 80305; 93005; 93010

== ENCOUNTER 2023-08-17 04:20 | Emergency (ER) | payer BC ==
[2023-08-17 04:33] VITALS: BP 107/60; PULSE 75; RESP 18; TEMP 98.1; BMI 22.6
[2023-08-17] MEDS ORDERED: ACETAMINOPHEN 325 MG TABLET (FP) ONE (05:03)
[2023-08-17] MEDS ORDERED: KETOROLAC TROMETHAMINE 30 MG/1 ML VIAL ONE (05:03)
[2023-08-17] MEDS: KETOROLAC TROMETHAMINE 30 MG/1 ML VIAL IM ONE (05:10)
[2023-08-17] MEDS: ACETAMINOPHEN 500 MG TABLET (FP) PO ONE (05:10)
== END 2023-08-17 06:50 | disposition left against medical advice (07) ==
LOC: JER 04:20
PROC: 3E0133Z Introduction of Anti-inflammatory into Subcutaneous Tissue, Percutaneous Approach (ICD-10-PCS; principal; 2023-08-17)
DX: S29.9XXA Unspecified injury of thorax, initial encounter (principal); M54.2 Cervicalgia; M25.512 Pain in left shoulder; M79.602 Pain in left arm; W13.4XXA Fall from, out of or through window, initial encounter
CPT/HCPCS: 70450-TC; 71250-TC; 72125-TC; 72128-TC; 72131-TC; 74176-TC; 99284-25

== ENCOUNTER 2024-09-03 02:00 | Inpatient (IN) | payer BC ==
[2024-09-03 02:19] VITALS: BMI 22.6
[2024-09-03] MEDS ORDERED: POLYETHYLENE GLYCOL (HEALTHYLAX) 3350 17 GM PACKET PO PRN (03:01)
[2024-09-03] MEDS ORDERED: BENZONATATE 200 MG CAPSULE PO PRN (03:01)
[2024-09-03] MEDS ORDERED: IBUPROFEN 400 MG TABLET (FP) PO PRN (03:01)
[2024-09-03] MEDS ORDERED: NALOXONE (NARCAN) HCL 4 MG/0.1 ML SPRAY NS PRN (03:01)
[2024-09-03] MEDS ORDERED: BENZOCAINE/MENTHOL (CHLORASEPTIC ) LOZENGE MM PRN (03:01)
[2024-09-03] MEDS ORDERED: LOPERAMIDE HCL 2 MG CAPSULE PO PRN (03:01)
[2024-09-03] MEDS ORDERED: guaiFENesin 600 MG TABLET.ER (FP) PO PRN (03:01)
[2024-09-03] MEDS ORDERED: MAG HYDROX/AL HYDROX/SIMETH 30 ML UNIT-DOSE CUP PO PRN (03:01)
[2024-09-03] MEDS ORDERED: MAGNESIUM HYDROX 2400MG/30ML ORAL SUSPENSION 30 ML CUP PO PRN (03:01)
[2024-09-03] MEDS ORDERED: NICOTINE POLACRILEX 2 MG GUM BUC PRN (03:01)
[2024-09-03] MEDS ORDERED: IBUPROFEN 600 MG TABLET (FP) PO PRN (03:01)
[2024-09-03] MEDS ORDERED: hydrOXYzine PAMOATE 25 MG CAPSULE (FP) PO PRN (03:01)
[2024-09-03] MEDS ORDERED: ACETAMINOPHEN 325 MG TABLET (FP) PO PRN (03:01)
[2024-09-03 04:44] VITALS: BP 122/86; PULSE 75; RESP 16; TEMP 97.7
[2024-09-03] MEDS ORDERED: TUBERCULIN PPD 5 TU/0.1ML SYRINGE (IN PATIENT USE ONLY) ID ONE ×2 (07:02→09:00)
[2024-09-03] MEDS ORDERED: PRENATAL VITAMINS W/ FOLIC ACID TABLET (FP) PO SCH (10:00)
[2024-09-03] MEDS ORDERED: NICOTINE 21 MG/24 HOURS TOPICAL PATCH TD SCH (10:00)
[2024-09-03] MEDS ORDERED: THIAMINE 100 MG TABLET PO SCH (22:00)
[2024-09-03] MEDS ORDERED: MELATONIN 5 MG TABLETS PO SCH (22:00)
== END 2024-09-03 09:27 | disposition home or self-care (01) | DRG 772 ==
LOC: YASAS 02:00 → Y3NR 04:20 → UNDOADMIN 04:20 → UNDODISIN 09:27
PROVIDERS: ADMIT Allergy & Immunology; ATTEND Psychiatry & Neurology Pain Medicine
PROC: HZ42ZZZ Group Counseling for Substance Abuse Treatment, Cognitive-Behavioral (ICD-10-PCS; principal; 2024-09-03)
DX: F14.20 Cocaine dependence, uncomplicated (principal); F11.20 Opioid dependence, uncomplicated; F12.20 Cannabis dependence, uncomplicated; F17.210 Nicotine dependence, cigarettes, uncomplicated; E05.90 Thyrotoxicosis, unspecified without thyrotoxic crisis or storm; K90.0 Celiac disease; Z87.19 Personal history of other diseases of the digestive system; Z56.0 Unemployment, unspecified; Z59.00 Homelessness unspecified; Z88.8 Allergy status to other drugs, medicaments and biological substances
CPT/HCPCS: 36415; 80305; 80307; 87811; 93005; 93010